=== PATIENT | male | born 1950 | race Caucasian/White ===

== ENCOUNTER 2019-10-13 12:13 | Inpatient (IN) | payer OTHER ==
[2019-10-13] MEDS ORDERED: LACTATED RINGERS SOLUTION 1000 ML INFUS.BAG IV ONE ×2 (13:35→16:45)
[2019-10-13] MEDS ORDERED: ACETAMINOPHEN 1000 MG/100 ML VIAL (NON FORMULARY) IVPB ONE (13:43)
[2019-10-13] MEDS ORDERED: ACETAMINOPHEN INJECTION 100 ML IVPB ONE (13:53)
--- NOTE | 2019-10-13 14:43 | PDOC ---
History of Present Illness - General Chief Complaint: Pain Stated Complaint: SENT BY PCP (AASHISH BULLARD) Time Seen by Provider: 10/13/19 12:41 - History of Present Illness Initial Comments: HPI Pt is a 68yo M with PMH HLD, NIDDM, colon CA s/p resection s/p ileostomy, who presents with 2 week history of worsening epigastric pain. Over the last two days, patient has had decreased PO intake and difficulty sleeping due to pain. Pain is described as epigastric radiating bilaterally to upper abdomen, constant, 11/10, worse when moving and laying on right side, described as squeezing. Was prescribed 21 tabs of oxycodone by Dr. Davis, and states that taking 1 pill at a time had no effect. States that he had pancreatitis in April when he was admitted here (bactrim induced pancreatitis), and states that current pain is significant worse. Reports significant weight loss prior to last admission, but denies recent further weight loss. Denies f/c, chest pain, SOB, n/v, no change in stool output in ileostomy bag, no dysuria. PCP: Susan PMH: see above PSH: see chart Meds: see chart Allergies: penicillin (anaphylaxis) Social: former smoker, denies ETOH (used to drink 6 pack/day, stopped in april; drank 6 packs/day for 2 weeks while on vacation in August) Review of Systems CONSTITUTIONAL:denies fever, chills, diaphoresis, generalized weakness, malaise, loss of appetite HEENT:denies rhinorrhea, nasal congestion, sore throat, ear pain, eye pain, visual changes CARDIOVASCULAR:denies chest pain, syncope, palpitations, irregular heart rate, lightheadedness, peripheral edema RESPIRATORY:denies cough, shortness of breath, wheezing GASTROINTESTINAL: reports abdominal pain, denies nausea, vomiting, blood in ileostomy output GENITOURINARY:denies dysuria, frequency, urgency, hesitancy, hematuria, flank pain MUSCULOSKELETAL:denies myalgia, arthralgia, neck pain, back pain HEMATOLOGIC/IMMUNOLOGIC:denies easy bleeding, easy bruising ENDOCRINE: reports previous unexplained weight loss NEUROLOGIC:denies headache, loss of consciousness, focal weakness or paresthesias, dizziness, mental status changes, bladder or bowel incontinence SKIN:denies rash, itching, pallor Physical Exam General: awake, alert, fully oriented, in no acute distress, well developed, well nourished Head: normocephalic, atraumatic Eyes: PERRL, EOMI, anicteric sclera, conjunctiva clear ENT: Auricles normal inspection, hearing grossly normal, oropharynx clear witho ut exudates, Moist mucous membranes Neck: supple, normal ROM Lung: equal breath sounds b/l, CTA b/l, no crackles, wheezes; no distress, speaks full sentences Heart: RRR, normal S1, S2, no murmurs appreciated Abdomen: soft, tender to palpitation in all quadrants, normoactive bowel sounds; voluntary guarding, no rebound, masses Extremities: no edema, no erythema or tenderness, DP/PT pulses 2+ and symmetric Neuro: CN2-12 grossly intact, moves all extremities, normal speech, sensation intact Skin: warm, dry, no rashes or lesions noted MDM Pt is a 68yo M with PMH HLD, NIDDM, colon CA s/p resection s/p ileostomy, who presents with 2 week history of worsening epigastric pain. DDx including but not limited to: pancreatitis, mesenteric ischemia, peptic ulcer, gastritis Workup: labs, CT a/p TX: pain control ED course Given Tylenol and 1L LR - no improvement in abdominal pain Labs: no leukocytosis, no anemia, elevated Cr (1.6), elevated lipase (2732), elevated lactic acid (2.2) Laboratory Tests 10/13/19 10/13/19 10/13/19 13:40 14:40 14:40 WBC 7.2 RBC 3.68 L Hgb 9.9 L Hct 30.8 L D MCV 83.7 MCH 26.8 MCHC 32.0 RDW 18.7 H Plt Count 238 D MPV 10.2 Absolute Neuts (auto) 5.3 Neutrophils % 73.7 D Lymphocytes % 7.3 L D Monocytes % 13.8 H Eosinophils % 4.5 Basophils % 0.7 Nucleated RBC % 0 PT with INR 15.60 H INR 1.32 H PTT (Actin FS) 27.6 Sodium Potassium Chloride Carbon Dioxide Anion Gap BUN Creatinine Est GFR (CKD-EPI)AfAm Est GFR (CKD-EPI)NonAf Random Glucose Lactic Acid Calcium Total Bilirubin AST ALT Alkaline Phosphatase Total Protein Albumin Lipase Blood Type O POSITIVE Antibody Screen Negative 10/13/19 10/13/19 14:40 14:40 WBC RBC Hgb Hct MCV MCH MCHC RDW Plt Count MPV Absolute Neuts (auto) Neutrophils % Lymphocytes % Monocytes % Eosinophils % Basophils % Nucleated RBC % PT with INR INR PTT (Actin FS) Sodium 135 L Potassium 4.9 Chloride 104 Carbon Dioxide 24 Anion Gap 6 L BUN 22.5 H Creatinine 1.6 H Est GFR (CKD-EPI)AfAm 50.20 Est GFR (CKD-EPI)NonAf 43.31 Random Glucose 128 H Lactic Acid 2.2 H* Calcium 9.2 Total Bilirubin 0.8 AST 57 H ALT 49 Alkaline Phosphatase 160 H Total Protein 7.9 Albumin 3.1 L Lipase 2732 H Blood Type Antibody Screen CT: multiple peripancreatic cysts consistent with pseudocysts, additional cysts anterior to transverse colon consistent with pseudocysts, thick walled urinary bladder Pt reports continued pain, will give fentanyl and additional 1L LR Admission discussed with patient who agrees with plan Will order EKG Disposition: Admit Past History - Medical History Allergies/Adverse Reactions: Allergies Allergy/AdvReac Type Severity Reaction Status Date / Time Penicillins Allergy Severe Difficulty Verified 04/27/19 18:52 Breathing adhesive tape AdvReac Rash Verified 04/26/19 05:53 Home Medications: Ambulatory Orders Gabapentin [Neurontin -] 300 mg PO TID 04/25/19 Pantoprazole Sodium [Protonix -] 40 mg PO DAILY 04/25/19 metFORMIN HCL [Metformin HCl ER] 750 mg PO DAILY 04/25/19 Aspirin [ASA -] 81 mg PO DAILY #30 tab.chew 05/02/19 Albuterol Sulfate [Proair Hfa] 2 puff IH BID PRN #1 inhaler 05/10/19 Metoprolol Tartrate [Lopressor -] 12.5 mg PO BID #60 tablet 05/10/19 Anemia: No Asthma: No Cancer: Yes (colo rectal 15 yrs ago 2001 s/p chemo and radiation) Cardiac Disorders: No CVA: No COPD: No CHF: No Dementia: No Diabetes: No GI Disorders: (ILEOSTOMY 2013 ; HERNIA REPAIR) Disorders: No HTN: No Hypercholesterolemia: Yes Liver Disease: No Seizures: No Thyroid Disease: No - Surgical History Abdominal Surgery: Yes (ileostomy 08/22/11; hernia repair 12/2012; I&D [id number]/6/13) Appendectomy: Yes Cardiac Surgery: No Cholecystectomy: No Lung Surgery: No Neurologic Surgery: No Orthopedic Surgery: No - Psycho-Social/Smoking History Smoking History: Former smoker Have you smoked in the past 12 months: No If you are a former smoker, when did you quit?: Over 30 years ago Information on smoking cessation initiated: No - Substance Abuse Hx (Audit-C & DAST Scrn) How often the patient has a drink containing alcohol: Never Score: In Men: 4 or > Positive; In Women: 3 or > Positive: 0 Screen Result (Pos requires Nsg. Audit-10AR): Negative In the last yr the pt used illegal drug/Rx for NonMed reason: No Score: Yes response is considered Positive: 0 Screen Result (Positive result requires Nsg. DAST-10): Negative *Physical Exam - Vital Signs Last Vital Signs Temp Pulse Resp BP Pulse Ox 98.4 F 133 H 21 H 115/74 98 10/13/19 12:15 10/13/19 12:15 10/13/19 12:15 10/13/19 12:15 10/13/19 12:15 ED Treatment Course - LABORATORY CBC & Chemistry Diagram: 10/14/19 09:05 10/14/19 09:05 - RADIOLOGY Radiology Studies Ordered: Category Date Time Status ABDOMEN & PELVIS CT WITH CONTR [CT] Stat CT Scan 10/13/19 13:35 Ordered Discharge - Discharge Information Problems reviewed: Yes Clinical Impression/Diagnosis: ARAVIND (acute kidney injury) Pancreatitis Qualifiers: Chronicity: chronic Pancreatitis type: unspecified pancreatitis type Qualified Code(s): K86.1 - Other chronic pancreatitis Condition: Stable - Admission Yes - Follow up/Referral - Patient Discharge Instructions - Post Discharge Activity
[2019-10-13 14:56] LABS: BASO % 0.7 % (0-2.0); EOS % 4.5 % (0-4.5); HEMATOCRIT 30.8 % (35.4-49); HEMOGLOBIN 9.9 GM/dL (11.7-16.9); LYMPH % 7.3 % (8-40); MCH 26.8 pg (25.7-33.7); MEAN CELL VOLUME 83.7 fl (80-96); MEAN PLT VOLUME 10.2 fl (7.5-11.1); MONO % 13.8 % (3.8-10.2); NEUT % 73.7 % (42.8-82.8); PLATELET COUNT 238 K/MM3 (134-434); RBC 3.68 M/mm3 (4.00-5.60); RDW 18.7 % (11.9-15.9); WHITE BLOOD COUNT 7.2 K/mm3 (4.0-10.0)
[2019-10-13 15:00] LABS: INR 1.32 (0.83-1.09); PROTHROMBIN TIME (PATIENT) 15.6 SEC (9.7-13.0)
[2019-10-13 15:03] LABS: ACTIVATED PTT 27.6 SECONDS (25.2-36.5)
[2019-10-13 15:22] LABS: ALBUMIN 3.1 g/dl (3.4-5.0); BILIRUBIN,TOTAL 0.8 mg/dL (0.2-1); BLOOD UREA NITROGEN 22.5 mg/dL (7-18); CALCIUM 9.2 mg/dL (8.5-10.1); CREATININE 1.6 mg/dL (0.55-1.3); POTASSIUM 4.9 mmol/L (3.5-5.1); TOT PROT 7.9 g/dl (6.4-8.2)
--- NOTE | 2019-10-13 15:56 | PDOC ---
Documentation entered by Ghazala Dunham SCRIBE, acting as scribe for Erick Garay MD. Erick Garay MD: This documentation has been prepared by the berry, Ghazala Dunham SCRIBE, under my direction and personally reviewed by me in its entirety. I confirm that the documentation accurately reflects all work, treatment, procedures, and medical decision making performed by me. Attending Attestation - Resident Resident Name: Lizeth Boyd - ED Attending Attestation I have performed the following: I have examined & evaluated the patient, The case was reviewed & discussed with the resident, I agree w/resident's findings & plan, Exceptions are as noted - HPI HPI: 10/13/19 15:10 The patient is a 68 year old male with past medical history significant for HLD, NIDDM and Colon CA s/p resection s/p ileostomy who presents to the emergency department with epigastric pain. The patient presents with 2 weeks of worsening epigastric pain radiating to the upper abdomen, associated with decreased PO intake. The patient reports he was prescribed Oxycodone for the pain, reports taking a dose, without pain relief. Denies fever, chills, cough, chest pain, shortness of breath, nausea, vomiting. Denies any changes in the stool. Denies any other complaint. Reports this feels like what he had in April. - Physicial Exam PE: 10/13/19 15:48 Agree with resident exam - Medical Decision Making 10/13/19 14:48 68yo M hx pancreatitis presents to the ED with epigastric pain and decreased PO. DEnies etoh use or new drugs DDx includes pancreatitis vs gastritis vs GERD vs enteritis Plan for labs, CTAP, IVF, pain control, reassess 10/13/19 15:54 Lipase in , consistent with pancreatitis CTAP pending Pain well controlled Discharge - Follow up/Referral Referrals: Neto Davis MD [Primary Care Provider] - - Patient Discharge Instructions - Post Discharge Activity
--- NOTE | 2019-10-13 19:46 | PN ---
Teaching Attending Note Name of Resident: Davon Mcallister ATTENDING PHYSICIAN STATEMENT I saw and evaluated the patient. I reviewed the resident's note and discussed the case with the resident. I agree with the resident's findings and plan as documented. SUBJECTIVE: Patient is a 68 year old man with a PMH of Penicillin/Hydromorphone allergy, HLD , NIDDM, ?Alcohol abuse, Colon cancer (s/p resection/ileostomy; chemotherapy/radiotherapy), Pancreatitis, ?CKD and ?COPD who presents with worsening epigastric pain for 2 weeks. Over the last two days, patient has had decreased PO intake and difficulty sleeping due to pain. Pain is described as epigastric, radiating bilaterally to upper abdomen, constant, 11/10, worse when moving and laying on right side and described as squeezing. Was prescribed 21 tabs of [address] Dr[address] Davis, and states that taking 1 pill at a time had no effect. States that he had Pancreatitis in April when he was admitted here (?Bactrim- induced pancreatitis), and states that current pain is much worse. Reports significant weight loss prior to last admission, but denies recent further weight loss. No change in stool output in ileostomy bag. Patient denies chest pain, shortness of breath, headache, palpitations, dizziness, fever, chills, nausea, vomiting, diarrhea, constipation, dysuria, frequency, urgency, melena, hematochezia or hematuria. Former smoker. Denies alcohol, tobacco or illicit drug use. No sick contacts or recent travels. Family history - father of ND and mother of unspecified cancer. OBJECTIVE: Alert Vital Signs Period Temp Pulse Resp BP Sys/[place] Pulse Ox Last 24 Hr 98.4 F 98-133 16-21 115-135/71-82 98-99 HEENT: No Jaundice, eye redness or discharge, PERRLA, EOMI. Normocephalic, atraumatic. External ears are normal and hearing is grossly intact. No nasal discharge. Neck: Supple, nontender. No palpable adenopathy or thyromegaly. No JVD Chest: Good effort. Clear to auscultation and percussion. Heart: Regular. No S3, rub or murmur Abdomen: Not distended, soft, diffuse tenderness; ileostomy bag in place; and no HSM. No rebound or guarding. Normal bowel sounds. Ext: Peripheral pulses intact. No leg edema. Skin: Warm and dry. No petechiae, rash or ecchymosis. Neuro: Alert. Oriented x3. CN 2-12 grossly intact. Sensation grossly intact in all four extremities and DTR are symmetric. Psych: Appropriate mood and affect. Good insight. Home Medications Medication Instructions Recorded Gabapentin [Neurontin -] 300 mg PO TID 04/25/19 Pantoprazole Sodium [Protonix -] 40 mg PO DAILY 04/25/19 metFORMIN HCL [Metformin HCl ER] 750 mg PO DAILY 04/25/19 Aspirin [ASA -] 81 mg PO DAILY #30 tab.chew 05/02/19 Albuterol Sulfate [Proair Hfa] 2 puff IH BID PRN #1 inhaler 05/10/19 Metoprolol Tartrate [Lopressor -] 12.5 mg PO BID #60 tablet 05/10/19 Abnormal Lab Results 10/13/19 10/13/19 10/13/19 14:40 14:40 14:40 RBC 3.68 L Hgb 9.9 L Hct 30.8 L D RDW 18.7 H Lymphocytes % 7.3 L D Monocytes % 13.8 H PT with INR 15.60 H INR 1.32 H Sodium 135 L Anion Gap 6 L BUN 22.5 H Creatinine 1.6 H Random Glucose 128 H Lactic Acid AST 57 H Alkaline Phosphatase 160 H Albumin 3.1 L Lipase 2732 H 10/13/19 14:40 RBC Hgb Hct RDW Lymphocytes % Monocytes % PT with INR INR Sodium Anion Gap BUN Creatinine Random Glucose Lactic Acid 2.2 H* AST Alkaline Phosphatase Albumin Lipase Current Medications Generic Name Dose Route Start Last Admin Trade Name Freq PRN Reason Stop Dose Admin Enoxaparin Sodium 40 mg 10/14/19 10:00 Lovenox - SQ DAILY SYLVESTER Fentanyl 25 mcg 10/13/19 21:18 Sublimaze Injection - IVPUSH 10/14/19 21:29 Q6H PRN PAIN LEVEL 7 - 10 Lactated Ringer's 1,000 ml in 1,000 mls @ 200 mls/hr 10/13/19 21:15 10/13/19 21:23 Lactated Ringers Solution IV 200 mls/hr ASDIR SYLVESTER Administration Insulin Aspart 1 vial 10/13/19 22:00 08/27/20 21:39 Novolog Vial Sliding Scale - SQ Not Given ACHS [facility] Protocol Oxycodone HCl 5 mg 10/13/19 22:00 Roxicodone - PO TID [facility] ASSESSMENT AND PLAN: 1. Pancreatitis - CT scan of abdomen/pelvis with IV contrast shows "multiple peripancreatic cysts consistent with pseudocysts, additional cysts anterior to transverse colon consistent with pseudocysts, thick walled urinary bladder." ER staff prescribed Tylenol, Fentanyl and IV LR for the patient. Will give Oxycodone q 6 hours and use Fentanyl for breakthrough pain. Give LR at 200/minute. Get urinalysis stat. EKG shows NSR at 88/minute and QTc 454, 1o AV block with no ischemic ST-T wave changes. Initial troponin is negative. Will avoid drugs that may prolong QTc. Will monitor LFTs, avoid hepatotoxic drugs, trend lactic acid and consult GI. Viral testing for COVID-19 ordered and patient placed on airborne, droplet and contact isolation. Started on supplemental oxygen via nasal cannula/non- rebreather mask. Hyponatremia likely partly due to hyperglycemia. Will limit free water intake and correct hyperglycemia. Will continue comprehensive care for all of patients comorbid conditions. 2. DM For now, we will hold the home diabetes drugs and implement sliding scale insulin regimen. Provide comprehensive diabetes care with patient teaching and counseling about the importance of adherence to prescribed diabetes regimen, euglycemia, eye care and foot care. Start on ACEI before discharge after ?ARAVIND is addressed. 3. Hypoalbuminemia - Possibly due to combined effects of malnutrition and inflammation associated with comorbid conditions. Will ensure adequate dietary protein intake and also consult ehs teacher. Urinalysis pending. 4. ARAVIND on ?CKD - Cause unclear. Will get kidney sonogram, hydrate gently, monitor urine output and consult Nephrology. Avoid nephrotoxic agents such as NSAIDS, aminoglycosides, contrast dyes and certain Alternative medicine products. 5. Anemia Cause unclaer, but has had basic anemia work up. "Uncorrected" reticulocyte count was 1.45; iron saturation 12%, normal B12/folate levels with Hematocrit of 26.2% on 05/17/2019. She was also noted to have elevated [place] and Lambda light chains and normal tumor makers (CEA, AFP, CA19-9). Will do serial stool guaiacs, treat with Venofer 500 mg x 2 doses and consult Hematology. 6. DVT prophylaxis - Lovenox 40 mg SQ q 24 hours. 7. Advance directives - Full code
[2019-10-13] MEDS: LACTATED RINGERS SOLUTION 1,000 ML/1,000 ML INFUS.BAG IV SCH (21:23)
[2019-10-13] MEDS: INSULIN SLIDING SCALE (NOVOLOG) 1 VIAL SQ SCH (21:39)
--- NOTE | 2019-10-13 22:05 | HP ---
CHIEF COMPLAINT: 2 weeks worsening epigastric pain PCP: Dr. Davis (patient reports last visit maybe 5 years ago; does not see doctor unless sick due to financial constraints) HISTORY OF PRESENT ILLNESS: 68 year old male patient with past medical history that includes HLD, NIDDM, colo-rectal cancer resection with ileostomy and chemo and radiation, cholecystectomy, and hiatial hernia, who presented to the emergency room with 2 weeks of worsening epigastric pain. The patient's pain began at around a 4/10 and then gradually increased daily until it was a 10/10 for the past 2 days and the patient was unable to sleep. The pain radiates to the right and left upper quadrants of his abdomen. The patient reports feeling very hungry and with an appetite, but he has not been eating as he feels that it might make the pain worse. He has been drinking several quarts of fluids daily. The patient denies any nausea/vomiting. He reports that his stool in his ileostomy bag hasn't changed in any way. He changes his ileostomy bag 6 times a day. The patient denies drinking any alcohol in the past month. He stopped drinking in April of this year and only drinks about one 6 pack of alcohol monthly, with his last drink 1 month ago. The patient denies any recent illness. The patient reports that his pain is down from a 10/10 to a 4/10 with the pain medication he was given in the emergency room. ER course was notable for: (1) 2 liters Lactated Ringers (2) 60mg Fentanyl and 1,000mg IV Tylenol (3) CT A/P Recent Travel: denies PAST MEDICAL HISTORY: HLD, NIDDM, colo-rectal cancer resection with ileostomy and chemo and radiation, hiatial hernia PAST SURGICAL HISTORY: parastomal hernia repair 12/2012, I&D parastomal abscess 01/21/2013, [employer] laser prostatectomy 06/20/2015, right lower quadrant ileostomy 08/22/2011, colo- rectal cancer resection 2001, cholecystectomy around 1997 Social History: Smoking: Denies Alcohol: Denies. Drinks one 6-pack of beer monthly. Last drink 1 month ago. Drugs: Denies Allergies Penicillins Allergy (Severe, Verified 04/27/19 18:52) Difficulty Breathing anaphylaxis adhesive tape Adverse Reaction (Verified 04/26/19 05:53) Rash hydromorphone HCl [From Dilaudid] Adverse Reaction (Verified 04/26/19 05:53) halucinations pt halucinates with IV dilaudid only. pt takes po dilaudid daily without any reaction HOME MEDICATIONS: Home Medications Medication Instructions Recorded Gabapentin [Neurontin -] 300 mg PO TID 04/25/19 Pantoprazole Sodium [Protonix -] 40 mg PO DAILY 04/25/19 metFORMIN HCL [Metformin HCl ER] 750 mg PO DAILY 04/25/19 Aspirin [ASA -] 81 mg PO DAILY #30 tab.chew 05/02/19 Albuterol Sulfate [Proair Hfa] 2 puff IH BID PRN #1 inhaler 05/10/19 Metoprolol Tartrate [Lopressor -] 12.5 mg PO BID #60 tablet 05/10/19 REVIEW OF SYSTEMS CONSTITUTIONAL: Absent: no loss of appetite CARDIOVASCULAR: Absent: no chest pain RESPIRATORY: Absent: no shortness of breath GASTROINTESTINAL: abdominal payne Absent: no nausea, no vomiting, no change in his ileostomy output GENITOURINARY: Absent: no dysuria MUSCULOSKELETAL: Absent: no leg swelling PHYSICAL EXAMINATION Vital Signs - 24 hr 10/13/19 10/13/19 10/13/19 12:15 14:53 17:52 Temperature 98.4 F Pulse Rate 133 H Pulse Rate [ 98 H 98 H Left] Respiratory 21 H 16 16 Rate Blood Pressure 115/74 Blood Pressure 135/82 130/71 [Arm] O2 Sat by Pulse 98 99 99 Oximetry (%) 10/13/19 18:17 Temperature Pulse Rate Pulse Rate [ Left] Respiratory Rate Blood Pressure Blood Pressure [Arm] O2 Sat by Pulse 99 Oximetry (%) GENERAL: Awake, alert, and fully oriented, in no acute distress. HEAD: Normal with no signs of trauma. EYES: Pupils equal, round and reactive to light, extraocular movements intact. No lid lag. EARS, NOSE, THROAT: Ears normal, nares patent, oropharynx clear without exudates. Moist mucous membranes. NECK: Normal range of motion, supple without lymphadenopathy, JVD, or masses. LUNGS: Breath sounds equal, clear to auscultation bilaterally. No wheezes, and no crackles. No accessory muscle use. HEART: Regular rate and rhythm, normal S1 and S2 without murmur, rub or gallop. ABDOMEN: Soft, tender to epigastric region and tender to RUQ and LUQ of abdomen, not distended, normoactive bowel sounds, no guarding, no rebound, no masses. Umbilicus dark blue-guido, but patient reports that this is it's normal appearance. No erythema around ileostomy bag. MUSCULOSKELETAL: Normal range of motion at all joints. No bony deformities or tenderness. UPPER EXTREMITIES: 2+ pulses, warm, well-perfused. No cyanosis. No clubbing. No peripheral edema. LOWER EXTREMITIES: 2+ pulses, warm, well-perfused. No calf tenderness. No peripheral edema. NEUROLOGICAL: Normal speech. Unable to see laterally to the left and inferiorly on visual field testing. PSYCHIATRIC: Cooperative. Good eye contact. Appropriate mood and affect. SKIN: Warm, dry, normal turgor, no rashes or lesions noted, normal capillary refill. Laboratory Results - last 24 hr 10/13/19 10/13/19 10/13/19 13:40 14:40 14:40 WBC 7.2 RBC 3.68 L Hgb 9.9 L Hct 30.8 L D MCV 83.7 MCH 26.8 MCHC 32.0 RDW 18.7 H Plt Count 238 D MPV 10.2 Absolute Neuts (auto) 5.3 Neutrophils % 73.7 D Lymphocytes % 7.3 L D Monocytes % 13.8 H Eosinophils % 4.5 Basophils % 0.7 Nucleated RBC % 0 PT with INR 15.60 H INR 1.32 H PTT (Actin FS) 27.6 Sodium Potassium Chloride Carbon Dioxide Anion Gap BUN Creatinine Est GFR (CKD-EPI)AfAm Est GFR (CKD-EPI)NonAf Random Glucose Lactic Acid Calcium Total Bilirubin AST ALT Alkaline Phosphatase Total Protein Albumin Triglycerides Lipase Blood Type O POSITIVE Antibody Screen Negative 10/13/19 10/13/19 10/13/19 14:40 14:40 18:00 WBC RBC Hgb Hct MCV MCH MCHC RDW Plt Count MPV Absolute Neuts (auto) Neutrophils % Lymphocytes % Monocytes % Eosinophils % Basophils % Nucleated RBC % PT with INR INR PTT (Actin FS) Sodium 135 L Potassium 4.9 Chloride 104 Carbon Dioxide 24 Anion Gap 6 L BUN 22.5 H Creatinine 1.6 H Est GFR (CKD-EPI)AfAm 50.20 Est GFR (CKD-EPI)NonAf 43.31 Random Glucose 128 H Lactic Acid 2.2 H* 2.0 Calcium 9.2 Total Bilirubin 0.8 AST 57 H ALT 49 Alkaline Phosphatase 160 H Total Protein 7.9 Albumin 3.1 L Triglycerides 115 Lipase 2732 H Blood Type Antibody Screen ASSESSMENT/PLAN: 68 year old male patient with past medical history that includes HLD, NIDDM, colo-rectal cancer resection with ileostomy and chemo and radiation, cholecystectomy, and hiatial hernia, who presented to the emergency room with 2 weeks of worsening epigastric pain. 1. Pancreatitis of idiopathic etiology - CT A/P showed pseudocysts - Lipase 2,732 - Patient denies recent alcohol use - Past medical history of cholecystectomy - LR at 200 - Oxycodone SYLVESTER and Fentanyl PRN for pain - NPO with plan to advance diet likely tomorrow morning 2. Possible ARAVIND - Nephro consulted - Renal U/S - IV Fluids 3. NIDDM - Novolog Sliding Scale - Blood Glucose Monitoring - Consider starting on ACEI before discharge after possible ARAVIND is addressed. 4. Anemia - Hem Consulted - Iron study done on 05/17/2019 - FOBT (patient's rectum sewn shut and instead uses ileostomy bag) - Venofer for the morning 5. Hypoalbuminemia - Events Traffic Controller consulted # FEN - LR at 200, Monitoring Electrolytes, NPO DVT PPx - Lovenox SQ Family Medical History Family History: As Documented Family Hx Cancer: Mother Family Hx Coronary Artery Disease: Father Visit type - Medication Review Med list reviewed for High Risk Meds patients 65 and older: Yes - Emergency Visit Emergency Visit: Yes ED Registration Date: 10/13/19 Care time: The patient presented to the Emergency Department on the above date and was hospitalized for further evaluation of their emergent condition. - New Patient This patient is new to me today: Yes Date on this admission: 10/14/19 - Critical Care Critical Care patient: No ATTENDING PHYSICIAN STATEMENT I saw and evaluated the patient. I reviewed the resident's note and discussed the case with the resident. I agree with the resident's findings and plan as documented. SUBJECTIVE: OBJECTIVE: ASSESSMENT AND PLAN:
[2019-10-13] MEDS: oxyCODONE HCL 5 MG TABLET PO SCH (23:00)
[2019-10-14 00:36] VITALS: BMI 25.2
[2019-10-14 00:46] LABS: URINE APPEARANCE CLEAR; URINE BILIRUBIN NEGATIVE (NEGATIVE); URINE COLOR YELLOW; URINE GLUCOSE (UA) NEGATIVE (NEGATIVE); URINE KETONE NEGATIVE (NEGATIVE)
[2019-10-14 00:47] LABS: EPI CELLS 8 /uL (0-25.1); HYALINE CASTS 1 /uL (0-3.1); URINE BACTERIA 7 /uL (0-1359); URINE LEUK ESTERASE NEGATIVE (NEGATIVE); URINE NITRITE NEGATIVE (NEGATIVE); URINE PROTEIN NEGATIVE (NEGATIVE); URINE RBC 13 /uL (0-23.9); URINE UROBILINOGEN 0.2 mg/dL (0.2-1.0); URINE WBC 14 /uL (0-25.8)
[2019-10-14] MEDS: LACTATED RINGERS SOLUTION 1,000 ML/1,000 ML INFUS.BAG IV SCH ×2 (05:25→12:47)
[2019-10-14] MEDS ORDERED: IRON SUCROSE INJECTION 500 MG in SODIUM CHLORIDE 225 ML IVPB ONE (06:00)
[2019-10-14] MEDS: oxyCODONE HCL 5 MG TABLET PO SCH ×2 (06:38→14:46)
[2019-10-14] MEDS: INSULIN SLIDING SCALE (NOVOLOG) 1 VIAL SQ SCH ×3 (06:40→16:42)
[2019-10-14 09:30] LABS: BASO % 0.7 % (0-2.0); EOS % 14.5 % (0-4.5); HEMATOCRIT 24.8 % (35.4-49); HEMOGLOBIN 7.8 GM/dL (11.7-16.9); LYMPH % 19.2 % (8-40); MCH 26.2 pg (25.7-33.7); MCHC 31.3 g/dl (32.0-35.9); MEAN CELL VOLUME 83.8 fl (80-96); MEAN PLT VOLUME 9.8 fl (7.5-11.1); MONO % 16.8 % (3.8-10.2); NEUT % 48.8 % (42.8-82.8); PLATELET COUNT 159 K/MM3 (134-434); RBC 2.96 M/mm3 (4.00-5.60); RDW 18.7 % (11.9-15.9); WHITE BLOOD COUNT 4.6 K/mm3 (4.0-10.0)
[2019-10-14] MEDS ORDERED: PANTOPRAZOLE SODIUM 40 MG VIAL IVPUSH SCH (10:00)
[2019-10-14] MEDS ORDERED: ENOXAPARIN NA (PORCINE) 40 MG/0.4 ML DISP.SYRIN SQ SCH (10:00)
[2019-10-14 10:05] LABS: ALBUMIN 2.4 g/dl (3.4-5.0); BILIRUBIN,TOTAL 1.2 mg/dL (0.2-1); BLOOD UREA NITROGEN 15.5 mg/dL (7-18); CALCIUM 8.3 mg/dL (8.5-10.1); CREATININE 1.3 mg/dL (0.55-1.3); MAGNESIUM 1.7 mg/dL (1.8-2.4); PHOSPHOROUS 2.8 mg/dL (2.5-4.9); POTASSIUM 4.1 mmol/L (3.5-5.1); TOT PROT 6.4 g/dl (6.4-8.2)
--- NOTE | 2019-10-14 11:03 | EKG ---
Test Reason : Blood Pressure : / mmHG Vent. Rate : 088 BPM Atrial Rate : 088 BPM P-R Int : 216 ms QRS Dur : 078 ms QT Int : 376 ms P-R-T Axes : 040 008 044 degrees QTc Int : 454 ms SINUS RHYTHM WITH 1ST DEGREE A-V BLOCK OTHERWISE NORMAL ECG WHEN COMPARED WITH ECG OF 25-APR-2019 15:08, NO SIGNIFICANT CHANGE WAS FOUND Confirmed by JESUS RICKS MD ([id number]) on 10/14/2019 11:02:56 AM Referred By: Confirmed By:JESUS RICKS MD
--- NOTE | 2019-10-14 11:06 | CONSULT ---
- Consultation REQUESTING PROVIDER: Sena JONES CONSULT REQUEST: We have been asked to surgically evaluate this patient for abdominal pain. PCP:Bruno Shetty MD HISTORY OF PRESENT ILLNESS: CTSP who is a 68 y/o male who presneted w/intractable abdominal pain not relieved by oral narcotics; he has a h/o most likely EtOH induced pancreatitis. PMHx: NIDDM/HTN/COPD/pancreatitis 04/2019 PSHx: LAR and then ileostomy for recurrent anastomotic leak/ulcer/incontinence ?; open cholecystectomy; parastomal hernia repair Home Medications Medication Instructions Recorded Gabapentin [Neurontin -] 300 mg PO TID 04/25/19 Pantoprazole Sodium [Protonix -] 40 mg PO DAILY 04/25/19 metFORMIN HCL [Metformin HCl ER] 750 mg PO DAILY 04/25/19 Aspirin [ASA -] 81 mg PO DAILY #30 tab.chew 05/02/19 Albuterol Sulfate [Proair Hfa] 2 puff IH BID PRN #1 inhaler 05/10/19 Metoprolol Tartrate [Lopressor -] 12.5 mg PO BID #60 tablet 05/10/19 Allergies Allergy/AdvReac Type Severity Reaction Status Date / Time Penicillins Allergy Severe Difficulty Verified 04/27/19 18:52 Breathing adhesive tape AdvReac Rash Verified 04/26/19 05:53 hydromorphone HCl AdvReac halucinatio Verified 04/26/19 05:53 [From Dilaudid] ns REVIEW OF SYSTEMS: CONSTITUTIONAL: Absent: fever, chills, diaphoresis, generalized weakness, malaise, loss of appetite, weight change CARDIOVASCULAR: Absent: chest pain, syncope, palpitations, irregular heart rate, lightheadedness, peripheral edema RESPIRATORY: Absent: cough, shortness of breath, dyspnea with exertion, wheezing, stridor, hemoptysis GASTROINTESTINAL: Present: abdominal pain, Absent: abdominal distension, nausea, vomiting, diarrhea, constipation, melena, hematochezia GENITOURINARY: Absent: dysuria, frequency, urgency, hesitancy, hematuria, flank pain, genital pain MUSCULOSKELETAL: Absent: myalgia, arthralgia, joint swelling, back pain, neck pain SKIN: Absent: rash, itching, pallor HEMATOLOGIC/IMMUNOLOGIC: Absent: easy bleeding, easy bruising, lymphadenopathy NEUROLOGIC: Absent: headache, focal weakness, paresthesias, dizziness, unsteady gait, seizure, mental status changes, bladder or bowel incontinence PSYCHIATRIC: Absent: anxiety, depression, suicidal or homicidal ideation, hallucinations. PHYSICAL EXAM: GENERAL: Awake, alert, and fully oriented, in no acute distress. HEAD: Normal with no signs of trauma. EYES: PERRL, sclera anicteric, conjunctiva clear. HEART: Regular rate and rhythm. No murmurs ABDOMEN: Soft, nontender, not distended, normoactive bowel sounds, no guarding, no rebound, no masses. No organomegaly. MUSCULOSKELETAL: Normal ROM at all joints. No bony deformities or tenderness. No CVA tenderness. UPPER EXTREMITIES: 2+ pulses, warm, well-perfused. No cyanosis. Cap refill <2 seconds. No peripheral edema. LOWER EXTREMITIES: 2+ pulses, warm, well-perfused. No calf tenderness. No peripheral edema. NEUROLOGICAL: Normal speech, gait not observed. PSYCH: Cooperative. Good eye contact. Appropriate mood and affect. SKIN: Warm, dry, normal turgor, no rashes or lesions noted. Vital Signs Temperature 97.5 F L 10/14/19 07:21 Pulse Rate 60 10/14/19 07:21 Respiratory Rate 20 10/14/19 07:21 Blood Pressure 90/61 10/14/19 07:21 O2 Sat by Pulse Oximetry (%) 95 10/14/19 07:21 Lab Results WBC 4.6 K/mm3 (4.0-10.0) 10/14/19 09:05 RBC 2.96 M/mm3 (4.00-5.60) L 10/14/19 09:05 Hgb 7.8 GM/dL (11.7-16.9) L 10/14/19 09:05 Hct 24.8 % (35.4-49) L D 10/14/19 09:05 MCV 83.8 fl (80-96) 10/14/19 09:05 MCHC 31.3 g/dl (32.0-35.9) L 10/14/19 09:05 RDW 18.7 % (11.9-15.9) H 10/14/19 09:05 Plt Count 159 K/MM3 (134-434) D 10/14/19 09:05 INR 1.32 (0.83-1.09) H 10/13/19 14:40 Sodium 138 mmol/L (136-145) 10/14/19 09:05 Potassium 4.1 mmol/L (3.5-5.1) 10/14/19 09:05 Chloride 107 mmol/L (98-107) 10/14/19 09:05 Carbon Dioxide 24 mmol/L (21-32) 10/14/19 09:05 Anion Gap 8 MMOL/L (8-16) 10/14/19 09:05 BUN 15.5 mg/dL (7-18) 10/14/19 09:05 Creatinine 1.3 mg/dL (0.55-1.3) 10/14/19 09:05 Random Glucose 84 mg/dL (74-106) 10/14/19 09:05 Calcium 8.3 mg/dL (8.5-10.1) L 10/14/19 09:05 Blood Type O POSITIVE 10/13/19 13:40 Antibody Screen Negative 10/13/19 13:40 CT scan a/p reviewed and c/w pancreatic pseudocysts IMP: pancreatic pseudocysts PLAN: Suggest evaluation by Dr. Dl Laureano at [facility]; in the interim suggest NPO/IVF/IV analgesics. Jace Valdez MD FACS
--- NOTE | 2019-10-14 11:10 | CON.GI ---
Consult Consult Specialty:: GI Referred by:: Hospitalist Service Reason for Consultation:: Pancreatitis - History of Present Illness Chief Complaint: Abdominal pain History of Present Illness: 68M admitted 04/24 for evaluation of abdominal pain. GI consulted to evaluate for pancreatitis. Had CT scan revealing multiple peripancreatic fluid collections, some of which are thick walled and large (>11cm). No vomiting. No melena or bl ood from ileostomy. Has history of rectal cancer, s/p chemo/RT and LAR in 2001, s/p Ileostomy in 2011 due to persistent anastamotic ulcer and fecal incontinence. Episode of pancreatitis 05/05. Liver chemistries have been normal. Was drinking upwards of 20 beers per day. He says that he hasn't had a drink since april. When asked about the history obtained regarding having last drank a month ago he said "he doesn't remember." - History Source History Provided By: Patient, Medical Record - Past Medical History Cardio/Vascular: Yes: Hyperlipdemia Pulmonary: Yes: Bronchitis. No: Asthma, Cancer, COPD, O2 Dependent, Pneumonia, Previously Intubated, Pulmonary Embolus, Pulmonary Fibrosis, Sleep Apnea Gastrointestinal: Yes: Cancer, Other (colo-rectal ca treated with RT and chemotherapy in 2001; radiation proctitis in 2011 treated with ileostomy) Renal/: Yes: BPH Infectious Disease: Yes: Other (pelvic abscess) - Past Surgical History Past Surgical History: Yes: Colectomy (LAR for history of anastamotic ulcer / fecal incontinence), Hernia Repair, Ileosotomy - Alcohol/Substance Use Hx Alcohol Use: Yes - Smoking History Smoking history: Former smoker Have you smoked in the past 12 months: No If you are a former smoker, when did you quit?: Over 30 years ago - Social History Usual Living Arrangement: With Spouse Place of : [facility] History of Recent Travel: No Home Medications - Allergies Allergies/Adverse Reactions: Allergies Allergy/AdvReac Type Severity Reaction Status Date / Time Penicillins Allergy Severe Difficulty Verified 04/27/19 18:52 Breathing adhesive tape AdvReac Rash Verified 04/26/19 05:53 hydromorphone HCl AdvReac halucinatio Verified 04/26/19 05:53 [From Dilaudid] ns - Home Medications Home Medications: Ambulatory Orders Gabapentin [Neurontin -] 300 mg PO TID 04/25/19 Pantoprazole Sodium [Protonix -] 40 mg PO DAILY 04/25/19 metFORMIN HCL [Metformin HCl ER] 750 mg PO DAILY 04/25/19 Aspirin [ASA -] 81 mg PO DAILY #30 tab.chew 05/02/19 Albuterol Sulfate [Proair Hfa] 2 puff IH BID PRN #1 inhaler 05/10/19 Metoprolol Tartrate [Lopressor -] 12.5 mg PO BID #60 tablet 05/10/19 Family Medical History Family Hx Cancer: Mother Family Hx Coronary Artery Disease: Father Review of Systems - Review of Systems Constitutional: denies: Chills Cardiovascular: denies: Chest Pain Respiratory: denies: Cough Gastrointestinal: reports: Abdominal Pain, Diarrhea (Chronic loose bowel movements though ileostomy). denies: Constipation Physical Exam-GI Vital Signs: Vital Signs Temperature 97.5 F L 10/14/19 07:21 Pulse Rate 60 10/14/19 07:21 Respiratory Rate 20 10/14/19 07:21 Blood Pressure 90/61 10/14/19 07:21 O2 Sat by Pulse Oximetry (%) 95 10/14/19 07:21 Constitutional: Yes: Calm Eyes: No: Sclera Icterus Cardiovascular: Yes: Regular Rate and Rhythm. No: Murmur Respiratory: Yes: CTA Bilaterally Gastrointestinal Inspection: Yes: Scars ...Auscultate: Yes: Normoactive Bowel Sounds ...Palpate: Yes: Tenderness (Marked TTP mid abdomen, left upper abdomen) ...Percussion: No: Tympanitic Edema: No (No LE edema) Neurological: Yes: Alert Labs: CBC, BMP 10/14/19 09:05 10/14/19 09:05 INR, PTT INR 1.32 (0.83-1.09) H 10/13/19 14:40 Imaging - Results Cat Scan: Report Reviewed, Image Reviewed Assessment/Plan Pancreatitis: Likey acute pancreatitis with what appears to be chronic sequelae of pseudocyst formation. Mr. Henderson is somewhat unclear regarding his drinking history, so alcohol induced pancreatitis would need to remain in the differential diagnosis. Advise: NPO IV hydration Monitor H/H Surgical evaluation. Seen by Dr. Valdez Prior to evaluation, it was arranged for patient to be transferred to [facility] for further management Advised need for complete alcohol cessation
--- NOTE | 2019-10-14 11:36 | CONSULT ---
Consultation: Heme-Onc Resident note REQUESTING PROVIDER: Dr. Shetty CONSULT REQUEST: We have been asked to medically evaluate this patient for anemia. HISTORY OF PRESENT ILLNESS: Patient is a 68 year old male with past medical history of HLD, NIDDM, St III colorectal cancer s/p ileostomy, presented to the hospital because of persistent epigastric pain for [address] A/P revealed multiple pancreatic cysts consistent with pseudocyts. Of note, patient was admitted back in April for COPD and CAD, and then developed pancreatitis. MRCP at that time was negative for any pancreatic mass, bactrim-induced vs alcohol was suspected. Patient reports weight loss and decreased PO intake for the past year. He reports epigastric pain, but denies any fevers, chills, night sweats, nausea, vomiting, chest pain, SOB. Denies bloody stools. We have been consulted for further evaluation of a nemia. Pt was diagnosed in 2001 with colorectal cancer, with 1 positive node. He was found to have stage 3 disease, and underwent RT and chemo. In 2011, he was found to have radiation proctitis, and required ileostomy. He was following previously with oncologist, Dr. Brewer. PMHx: HLD, NIDDM, colon cancer s/p ileostomy PSHx: parastomal hernia repair (2012), laser prostatectomy (2015), hemicolectomy resection (2001), ileostomy (2011), cholecystectomy Allergies: PCN, hydromorphone FHx: mother - colon CA, at age 28. SHx: former smoker, quit 1989, 1 ppd for many yrs, previous alcohol use, denies illicit drug use REVIEW OF SYSTEMS: CONSTITUTIONAL: Absent: fever, chills, diaphoresis, generalized weakness, malaise, loss of appetite, weight change HEENT: Absent: rhinorrhea, nasal congestion, throat pain, throat swelling, difficulty swallowing, mouth swelling, ear pain, eye pain, visual changes CARDIOVASCULAR: Absent: chest pain, syncope, palpitations, irregular heart rate, lightheadedness, peripheral edema RESPIRATORY: Absent: cough, shortness of breath, dyspnea with exertion, orthopnea, wheezing, stridor, hemoptysis GASTROINTESTINAL:abdominal pain Absent: abdominal distension, nausea, vomiting, diarrhea, constipation, melena, hematochezia GENITOURINARY: Absent: dysuria, frequency, urgency, hesitancy, hematuria, flank pain, genital pain MUSCULOSKELETAL: Absent: myalgia, arthralgia, joint swelling, back pain, neck pain SKIN: Absent: rash, itching, pallor HEMATOLOGIC/IMMUNOLOGIC: Absent: easy bleeding, easy bruising, lymphadenopathy, frequent infections ENDOCRINE: Absent: unexplained weight gain, unexplained weight loss, heat intolerance, cold intolerance NEUROLOGIC: Absent: headache, focal weakness or paresthesias, dizziness, unsteady gait, seizure, mental status changes, bladder or bowel incontinence PSYCHIATRIC: Absent: anxiety, depression, suicidal or homicidal ideation, hallucinations. PHYSICAL EXAMINATION Vital Signs - 24 hr 10/13/19 10/13/19 10/13/19 12:15 14:53 17:52 Temperature 98.4 F Pulse Rate 133 H Pulse Rate [ 98 H 98 H Left] Respiratory 21 H 16 16 Rate Blood Pressure 115/74 Blood Pressure 135/82 130/71 [Arm] O2 Sat by Pulse 98 99 99 Oximetry (%) 10/13/19 10/13/19 10/13/19 18:17 19:21 21:00 Temperature 98.8 F Pulse Rate 85 Pulse Rate [ Left] Respiratory 20 20 Rate Blood Pressure 113/62 Blood Pressure [Arm] O2 Sat by Pulse 99 95 95 Oximetry (%) 10/14/19 10/14/19 02:00 07:21 Temperature 97.7 F 97.5 F L Pulse Rate 85 60 Pulse Rate [ Left] Respiratory 20 20 Rate Blood Pressure 105/66 90/61 Blood Pressure [Arm] O2 Sat by Pulse 96 95 Oximetry (%) GENERAL: Awake, alert, and fully oriented, in no acute distress. HEAD: Normal with no signs of trauma. EYES: PERRLA, EOMI, sclera anicteric, conjunctiva clear. EARS, NOSE, THROAT: Dry mucous membranes. NECK: Normal range of motion, supple LUNGS: Decreased breath sounds on bilateral bases HEART: Regular rate and rhythm, normal S1 and S2 ABDOMEN: Soft, +LUQ/epigastric tenderness, not distended, NABS, +ileostomy LOWER EXTREMITIES: 2+ pulses, warm, well-perfused. NEUROLOGICAL: Cranial nerves II-XII intact. Normal speech. PSYCHIATRIC: Cooperative. Good eye contact. SKIN: Warm, dry, normal turgor Laboratory Results - last 24 hr 08/27/20 08/27/20 08/27/20 13:40 14:40 14:40 WBC 7.2 RBC 3.68 L Hgb 9.9 L Hct 30.8 L D MCV 83.7 MCH 26.8 MCHC 32.0 RDW 18.7 H Plt Count 238 D MPV 10.2 Absolute Neuts (auto) 5.3 Neutrophils % 73.7 D Lymphocytes % 7.3 L D Monocytes % 13.8 H Eosinophils % 4.5 Basophils % 0.7 Nucleated RBC % 0 PT with INR 15.60 H INR 1.32 H PTT (Actin FS) 27.6 Sodium Potassium Chloride Carbon Dioxide Anion Gap BUN Creatinine Est GFR (CKD-EPI)AfAm Est GFR (CKD-EPI)NonAf POC Glucometer Random Glucose Lactic Acid Calcium Phosphorus Magnesium Total Bilirubin AST ALT Alkaline Phosphatase Total Protein Albumin Triglycerides Lipase Urine Color Urine Appearance Urine pH Ur Specific Riley Urine Protein Urine Glucose (UA) Urine Ketones Urine Blood Urine Nitrite Urine Bilirubin Urine Urobilinogen Ur Leukocyte Esterase Urine WBC (Auto) Urine RBC (Auto) Urine Casts (Auto) U Epithel Cells (Auto) Urine Bacteria (Auto) Stool Occult Blood Blood Type O POSITIVE Antibody Screen Negative 10/13/19 10/13/19 10/13/19 14:40 14:40 18:00 WBC RBC Hgb Hct MCV MCH MCHC RDW Plt Count MPV Absolute Neuts (auto) Neutrophils % Lymphocytes % Monocytes % Eosinophils % Basophils % Nucleated RBC % PT with INR INR PTT (Actin FS) Sodium 135 L Potassium 4.9 Chloride 104 Carbon Dioxide 24 Anion Gap 6 L BUN 22.5 H Creatinine 1.6 H Est GFR (CKD-EPI)AfAm 50.20 Est GFR (CKD-EPI)NonAf 43.31 POC Glucometer Random Glucose 128 H Lactic Acid 2.2 H* 2.0 Calcium 9.2 Phosphorus Magnesium Total Bilirubin 0.8 AST 57 H ALT 49 Alkaline Phosphatase 160 H Total Protein 7.9 Albumin 3.1 L Triglycerides 115 Lipase 2732 H Urine Color Urine Appearance Urine pH Ur Specific Riley Urine Protein Urine Glucose (UA) Urine Ketones Urine Blood Urine Nitrite Urine Bilirubin Urine Urobilinogen Ur Leukocyte Esterase Urine WBC (Auto) Urine RBC (Auto) Urine Casts (Auto) U Epithel Cells (Auto) Urine Bacteria (Auto) Stool Occult Blood Blood Type Antibody Screen 10/13/19 10/13/19 10/14/19 21:35 23:18 05:35 WBC RBC Hgb Hct MCV MCH MCHC RDW Plt Count MPV Absolute Neuts (auto) Neutrophils % Lymphocytes % Monocytes % Eosinophils % Basophils % Nucleated RBC % PT with INR INR PTT (Actin FS) Sodium Potassium Chloride Carbon Dioxide Anion Gap BUN Creatinine Est GFR (CKD-EPI)AfAm Est GFR (CKD-EPI)NonAf POC Glucometer 88 Random Glucose Lactic Acid Calcium Phosphorus Magnesium Total Bilirubin AST ALT Alkaline Phosphatase Total Protein Albumin Triglycerides Lipase Urine Color Yellow Urine Appearance Clear Urine pH 5.0 D Ur Specific Riley 1.066 H Urine Protein Negative Urine Glucose (UA) Negative Urine Ketones Negative Urine Blood Negative Urine Nitrite Negative Urine Bilirubin Negative Urine Urobilinogen 0.2 Ur Leukocyte Esterase Negative Urine WBC (Auto) 14 Urine RBC (Auto) 13 Urine Casts (Auto) 1 U Epithel Cells (Auto) 8 Urine Bacteria (Auto) 7 Stool Occult Blood Positive Blood Type Antibody Screen 10/14/19 10/14/19 10/14/19 06:36 09:05 09:05 WBC 4.6 RBC 2.96 L Hgb 7.8 L Hct 24.8 L D MCV 83.8 MCH 26.2 MCHC 31.3 L RDW 18.7 H Plt Count 159 D MPV 9.8 Absolute Neuts (auto) 2.2 Neutrophils % 48.8 D Lymphocytes % 19.2 D Monocytes % 16.8 H Eosinophils % 14.5 H D Basophils % 0.7 Nucleated RBC % 0 PT with INR INR PTT (Actin FS) Sodium 138 Potassium 4.1 Chloride 107 Carbon Dioxide 24 Anion Gap 8 BUN 15.5 Creatinine 1.3 Est GFR (CKD-EPI)AfAm 64.52 Est GFR (CKD-EPI)NonAf 55.67 POC Glucometer 90 Random Glucose 84 Lactic Acid Calcium 8.3 L Phosphorus 2.8 Magnesium 1.7 L Total Bilirubin 1.2 H AST 40 H ALT 38 Alkaline Phosphatase 117 Total Protein 6.4 Albumin 2.4 L Triglycerides Lipase Urine Color Urine Appearance Urine pH Ur Specific Riley Urine Protein Urine Glucose (UA) Urine Ketones Urine Blood Urine Nitrite Urine Bilirubin Urine Urobilinogen Ur Leukocyte Esterase Urine WBC (Auto) Urine RBC (Auto) Urine Casts (Auto) U Epithel Cells (Auto) Urine Bacteria (Auto) Stool Occult Blood Blood Type Antibody Screen Active Medications Generic Name Dose Route Start Last Admin Trade Name Freq PRN Reason Stop Dose Admin Enoxaparin Sodium 40 mg 10/14/19 10:00 Lovenox - SQ DAILY SYLVESTER Fentanyl 25 mcg 10/13/19 21:59 10/14/19 05:26 Sublimaze Injection - IVPB 10/14/19 21:29 25 mcg Q6H PRN Administration PAIN LEVEL 7 - 10 Lactated Ringer's 1,000 ml in 1,000 mls @ 200 mls/hr 10/13/19 21:15 10/14/19 05:25 Lactated Ringers Solution IV 200 mls/hr ASDIR SYLVESTER Administration Insulin Aspart 1 vial 10/13/19 22:00 10/14/19 06:40 Novolog Vial Sliding Scale - SQ Not Given ACHS [facility] Protocol Oxycodone HCl 5 mg 10/13/19 22:00 10/14/19 06:38 Roxicodone - PO 5 mg TID SYLVESTER Administration Pantoprazole Sodium 40 mg 10/14/19 10:00 Protonix Iv IVPUSH DAILY SYLVESTER ASSESSMENT/PLAN: Patient is a 68 year old male with past medical history of HLD, NIDDM, St III colorectal cancer s/p ileostomy, presented to the hospital because of persistent epigastric pain for 2 weeks. We have been consulted for further evaluation of anemia. #Anemia -likely 2/2 anemia of chronic disease + iron deficiency -Iron studies on 04/2019 - iron30, TSAT 12%, consistent with iron deficiency -Iron studies added to morning labs pending -IV venofer given x1 -Stool occult positive -GI on board #Rectal CA, past history stage 3 -- s/p chemo, RT #Radiation proctitis, s/p ileostomy -In 2001, pt had colorectal ca with one positive node. Stage III disease. He was treated with RT/Chemotherapy. -In 2011, radiation proctitis requiring ileostomy. Post procedure, hernia repair. -CT AP: rectal thickening and increased soft tissue within presacral space -- as seen on previous CT -can be due to fibrosis 2/2 radiation vs recurrent disease -tumor markers in 04/2019, including CEA, Ca 19-9 and AFP were normal -outpatient PET-CT scan recommended. Patient would need to follow up with PCP/ heme-onc outpatient. Patient pending transfer to [facility] for further management of pancreatic pseudocysts/pancreatitis. Dispo: We will continue to follow the patient. Thank you for this consultative opportunity. Visit type - Medication Review Med list reviewed for High Risk Meds patients 65 and older: Yes - Emergency Visit Emergency Visit: Yes ED Registration Date: 10/13/19 Care time: The patient presented to the Emergency Department on the above date and was hospitalized for further evaluation of their emergent condition. - New Patient This patient is new to me today: Yes Date on this admission: 10/14/19 - Critical Care Critical Care patient: No ATTENDING PHYSICIAN STATEMENT I saw and evaluated the patient. I reviewed the resident's note and discussed the case with the resident. I agree with the resident's findings and plan as documented. SUBJECTIVE: OBJECTIVE: ASSESSMENT AND PLAN:
[2019-10-14 13:59] VITALS: BP 100/58; PULSE 74; TEMP 99.2
--- NOTE | 2019-10-14 14:19 | DS ---
Physical Exam: SUBJECTIVE: Patient seen and examined at bedside. pt is having abdominal pain. OBJECTIVE: Vital Signs Period Temp Pulse Resp BP Sys/[place] Pulse Ox Last 24 Hr 97.5 F-99.2 F 60-98 16-20 90-135/58-82 95-99 PHYSICAL EXAM GENERAL: The patient is awake, alert, and fully oriented, in no acute distress. HEAD: Normal with no signs of trauma. EYES: extraocular movements intact, sclera anicteric LUNGS: Breath sounds equal, clear to auscultation bilaterally, no accessory muscle use. HEART: Regular rate and rhythm, S1, S2 without murmur, rub or gallop. ABDOMEN: Soft, TTP epigastric, RUQ, nondistended, normoactive bowel sounds, no guarding,umbilical hernia. colostomy in place. EXTREMITIES: 2+ pulses, warm, well-perfused, no edema. SKIN: Warm, dry, normal turgor, no rashes or lesions noted. LABS Laboratory Results - last 24 hr 10/13/19 10/13/19 10/13/19 13:40 14:40 14:40 WBC 7.2 RBC 3.68 L Hgb 9.9 L Hct 30.8 L D MCV 83.7 MCH 26.8 MCHC 32.0 RDW 18.7 H Plt Count 238 D MPV 10.2 Absolute Neuts (auto) 5.3 Neutrophils % 73.7 D Lymphocytes % 7.3 L D Monocytes % 13.8 H Eosinophils % 4.5 Basophils % 0.7 Nucleated RBC % 0 PT with INR 15.60 H INR 1.32 H PTT (Actin FS) 27.6 Sodium Potassium Chloride Carbon Dioxide Anion Gap BUN Creatinine Est GFR (CKD-EPI)AfAm Est GFR (CKD-EPI)NonAf POC Glucometer Random Glucose Lactic Acid Calcium Phosphorus Magnesium Total Bilirubin AST ALT Alkaline Phosphatase Total Protein Albumin Triglycerides Lipase Urine Color Urine Appearance Urine pH Ur Specific [place]ff Urine Protein Urine Glucose (UA) Urine Ketones Urine Blood Urine Nitrite Urine Bilirubin Urine Urobilinogen Ur Leukocyte Esterase Urine WBC (Auto) Urine RBC (Auto) Urine Casts (Auto) U Epithel Cells (Auto) Urine Bacteria (Auto) Stool Occult Blood Blood Type O POSITIVE Antibody Screen Negative 10/13/19 10/13/19 10/13/19 14:40 14:40 18:00 WBC RBC Hgb Hct MCV MCH MCHC RDW Plt Count MPV Absolute Neuts (auto) Neutrophils % Lymphocytes % Monocytes % Eosinophils % Basophils % Nucleated RBC % PT with INR INR PTT (Actin FS) Sodium 135 L Potassium 4.9 Chloride 104 Carbon Dioxide 24 Anion Gap 6 L BUN 22.5 H Creatinine 1.6 H Est GFR (CKD-EPI)AfAm 50.20 Est GFR (CKD-EPI)NonAf 43.31 POC Glucometer Random Glucose 128 H Lactic Acid 2.2 H* 2.0 Calcium 9.2 Phosphorus Magnesium Total Bilirubin 0.8 AST 57 H ALT 49 Alkaline Phosphatase 160 H Total Protein 7.9 Albumin 3.1 L Triglycerides 115 Lipase 2732 H Urine Color Urine Appearance Urine pH Ur Specific [place] Urine Protein Urine Glucose (UA) Urine Ketones Urine Blood Urine Nitrite Urine Bilirubin Urine Urobilinogen Ur Leukocyte Esterase Urine WBC (Auto) Urine RBC (Auto) Urine Casts (Auto) U Epithel Cells (Auto) Urine Bacteria (Auto) Stool Occult Blood Blood Type Antibody Screen 10/13/19 10/13/19 10/14/19 21:35 23:18 05:35 WBC RBC Hgb Hct MCV MCH MCHC RDW Plt Count MPV Absolute Neuts (auto) Neutrophils % Lymphocytes % Monocytes % Eosinophils % Basophils % Nucleated RBC % PT with INR INR PTT (Actin FS) Sodium Potassium Chloride Carbon Dioxide Anion Gap BUN Creatinine Est GFR (CKD-EPI)AfAm Est GFR (CKD-EPI)NonAf POC Glucometer 88 Random Glucose Lactic Acid Calcium Phosphorus Magnesium Total Bilirubin AST ALT Alkaline Phosphatase Total Protein Albumin Triglycerides Lipase Urine Color Yellow Urine Appearance Clear Urine pH 5.0 D Ur Specific Graff 1.066 H Urine Protein Negative Urine Glucose (UA) Negative Urine Ketones Negative Urine Blood Negative Urine Nitrite Negative Urine Bilirubin Negative Urine Urobilinogen 0.2 Ur Leukocyte Esterase Negative Urine WBC (Auto) 14 Urine RBC (Auto) 13 Urine Casts (Auto) 1 U Epithel Cells (Auto) 8 Urine Bacteria (Auto) 7 Stool Occult Blood Positive Blood Type Antibody Screen 10/14/19 10/14/19 10/14/19 06:36 09:05 09:05 WBC 4.6 RBC 2.96 L Hgb 7.8 L Hct 24.8 L D MCV 83.8 MCH 26.2 MCHC 31.3 L RDW 18.7 H Plt Count 159 D MPV 9.8 Absolute Neuts (auto) 2.2 Neutrophils % 48.8 D Lymphocytes % 19.2 D Monocytes % 16.8 H Eosinophils % 14.5 H D Basophils % 0.7 Nucleated RBC % 0 PT with INR INR PTT (Actin FS) Sodium 138 Potassium 4.1 Chloride 107 Carbon Dioxide 24 Anion Gap 8 BUN 15.5 Creatinine 1.3 Est GFR (CKD-EPI)AfAm 64.52 Est GFR (CKD-EPI)NonAf 55.67 POC Glucometer 90 Random Glucose 84 Lactic Acid Calcium 8.3 L Phosphorus 2.8 Magnesium 1.7 L Total Bilirubin 1.2 H AST 40 H ALT 38 Alkaline Phosphatase 117 Total Protein 6.4 Albumin 2.4 L Triglycerides Lipase Urine Color Urine Appearance Urine pH Ur Specific [place] Urine Protein Urine Glucose (UA) Urine Ketones Urine Blood Urine Nitrite Urine Bilirubin Urine Urobilinogen Ur Leukocyte Esterase Urine WBC (Auto) Urine RBC (Auto) Urine Casts (Auto) U Epithel Cells (Auto) Urine Bacteria (Auto) Stool Occult Blood Blood Type Antibody Screen HOSPITAL COURSE: Date of Admission:10/13/19 68 yo M patient with PMH of HLD, NIDDM, colo-rectal cancer resection with ileostomy and chemo and radiation, cholecystectomy, and hiatial hernia, who p/w 2 weeks of worsening epigastric pain. Pt had CT abd/pelvis in ED showing 2 pancreatic pseudocyst. lipase 2732. evaluated by GI and surgery. will get MRCP. Pt accepted to [facility] under Dr. Anders Logan. Pending covid. Date of Discharge: 10/14/19 Discharge Summary Reason For Visit: ACUTE KIDNEY INJURY ILEOSTOMY PRESENT PACREATITIS Condition: Guarded - Instructions Diet, Activity, Other Instructions: Transfer to [facility] transfer center Dr. anders Logan Referrals: Neto Davis MD [Primary Care Provider] - Disposition: TRANSFER ACUTE CARE/OTHER HOSP - Home Medications Comprehensive Discharge Medication List: Ambulatory Orders Gabapentin [Neurontin -] 300 mg PO TID 04/25/19 Pantoprazole Sodium [Protonix -] 40 mg PO DAILY 04/25/19 metFORMIN HCL [Metformin HCl ER] 750 mg PO DAILY 04/25/19 Aspirin [ASA -] 81 mg PO DAILY #30 tab.chew 05/02/19 Albuterol Sulfate [Proair Hfa] 2 puff IH BID PRN #1 inhaler 05/10/19 Metoprolol Tartrate [Lopressor -] 12.5 mg PO BID #60 tablet 05/10/19 ATTENDING PHYSICIAN STATEMENT I saw and evaluated the patient. I reviewed the resident's note and discussed the case with the resident. I agree with the resident's findings and plan as documented. SUBJECTIVE: OBJECTIVE: ASSESSMENT AND PLAN:
[2019-10-14] MEDS ORDERED: MAGNESIUM 2GM/50ML STERILE WATER IVPB IVPB ONE (14:48)
--- NOTE | 2019-10-14 14:51 | PN ---
Teaching Attending Note Name of Resident: Tavia Louise ATTENDING PHYSICIAN STATEMENT I saw and evaluated the patient. I reviewed the resident's note and discussed the case with the resident. I agree with the resident's findings and plan as documented. SUBJECTIVE: Complains of ongoing abdominal pain. No nausea/vomiting. No fever/chills. OBJECTIVE: Afebrile, Hemodynamically Stable. AAO x 3. Last Vital Signs Temp Pulse Resp BP Pulse Ox 99.2 F 74 20 100/58 L 98 10/14/19 13:00 10/14/19 13:00 10/14/19 13:00 10/14/19 13:00 10/14/19 13:00 HEENT- Atraumatic, Normocephalic. Heart - S1, S2, RRR Lungs - clear to auscultation Abdomen - Generalized tenderness worse in upper quadrants. Ileostomy RLQ with liquid stool. Extremities - no edema no calf tenderness. Neuro - AAO x 3. Tone/Power normal all 4 extremities. Laboratory Results - last 24 hr 10/13/19 10/13/19 10/13/19 13:40 14:40 14:40 WBC 7.2 RBC 3.68 L Hgb 9.9 L Hct 30.8 L D MCV 83.7 MCH 26.8 MCHC 32.0 RDW 18.7 H Plt Count 238 D MPV 10.2 Absolute Neuts (auto) 5.3 Neutrophils % 73.7 D Lymphocytes % 7.3 L D Monocytes % 13.8 H Eosinophils % 4.5 Basophils % 0.7 Nucleated RBC % 0 PT with INR 15.60 H INR 1.32 H PTT (Actin FS) 27.6 Sodium Potassium Chloride Carbon Dioxide Anion Gap BUN Creatinine Est GFR (CKD-EPI)AfAm Est GFR (CKD-EPI)NonAf POC Glucometer Random Glucose Lactic Acid Calcium Phosphorus Magnesium Iron TIBC Iron Saturation Unsaturated IBC Ferritin Total Bilirubin AST ALT Alkaline Phosphatase Total Protein Albumin Triglycerides Lipase Urine Color Urine Appearance Urine pH Ur Specific [place] Urine Protein Urine Glucose (UA) Urine Ketones Urine Blood Urine Nitrite Urine Bilirubin Urine Urobilinogen Ur Leukocyte Esterase Urine WBC (Auto) Urine RBC (Auto) Urine Casts (Auto) U Epithel Cells (Auto) Urine Bacteria (Auto) Stool Occult Blood Blood Type O POSITIVE Antibody Screen Negative 10/13/19 10/13/19 10/13/19 14:40 14:40 18:00 WBC RBC Hgb Hct MCV MCH MCHC RDW Plt Count MPV Absolute Neuts (auto) Neutrophils % Lymphocytes % Monocytes % Eosinophils % Basophils % Nucleated RBC % PT with INR INR PTT (Actin FS) Sodium 135 L Potassium 4.9 Chloride 104 Carbon Dioxide 24 Anion Gap 6 L BUN 22.5 H Creatinine 1.6 H Est GFR (CKD-EPI)AfAm 50.20 Est GFR (CKD-EPI)NonAf 43.31 POC Glucometer Random Glucose 128 H Lactic Acid 2.2 H* 2.0 Calcium 9.2 Phosphorus Magnesium Iron TIBC Iron Saturation Unsaturated IBC Ferritin Total Bilirubin 0.8 AST 57 H ALT 49 Alkaline Phosphatase 160 H Total Protein 7.9 Albumin 3.1 L Triglycerides 115 Lipase 2732 H Urine Color Urine Appearance Urine pH Ur Specific [place] Urine Protein Urine Glucose (UA) Urine Ketones Urine Blood Urine Nitrite Urine Bilirubin Urine Urobilinogen Ur Leukocyte Esterase Urine WBC (Auto) Urine RBC (Auto) Urine Casts (Auto) U Epithel Cells (Auto) Urine Bacteria (Auto) Stool Occult Blood Blood Type Antibody Screen 10/13/19 10/13/19 10/14/19 21:35 23:18 05:35 WBC RBC Hgb Hct MCV MCH MCHC RDW Plt Count MPV Absolute Neuts (auto) Neutrophils % Lymphocytes % Monocytes % Eosinophils % Basophils % Nucleated RBC % PT with INR INR PTT (Actin FS) Sodium Potassium Chloride Carbon Dioxide Anion Gap BUN Creatinine Est GFR (CKD-EPI)AfAm Est GFR (CKD-EPI)NonAf POC Glucometer 88 Random Glucose Lactic Acid Calcium Phosphorus Magnesium Iron TIBC Iron Saturation Unsaturated IBC Ferritin Total Bilirubin AST ALT Alkaline Phosphatase Total Protein Albumin Triglycerides Lipase Urine Color Yellow Urine Appearance Clear Urine pH 5.0 D Ur Specific [place] 1.066 H Urine Protein Negative Urine Glucose (UA) Negative Urine Ketones Negative Urine Blood Negative Urine Nitrite Negative Urine Bilirubin Negative Urine Urobilinogen 0.2 Ur Leukocyte Esterase Negative Urine WBC (Auto) 14 Urine RBC (Auto) 13 Urine Casts (Auto) 1 U Epithel Cells (Auto) 8 Urine Bacteria (Auto) 7 Stool Occult Blood Positive Blood Type Antibody Screen 10/14/19 10/14/19 10/14/19 06:36 09:05 09:05 WBC 4.6 RBC 2.96 L Hgb 7.8 L Hct 24.8 L D MCV 83.8 MCH 26.2 MCHC 31.3 L RDW 18.7 H Plt Count 159 D MPV 9.8 Absolute Neuts (auto) 2.2 Neutrophils % 48.8 D Lymphocytes % 19.2 D Monocytes % 16.8 H Eosinophils % 14.5 H D Basophils % 0.7 Nucleated RBC % 0 PT with INR INR PTT (Actin FS) Sodium 138 Potassium 4.1 Chloride 107 Carbon Dioxide 24 Anion Gap 8 BUN 15.5 Creatinine 1.3 Est GFR (CKD-EPI)AfAm 64.52 Est GFR (CKD-EPI)NonAf 55.67 POC Glucometer 90 Random Glucose 84 Lactic Acid Calcium 8.3 L Phosphorus 2.8 Magnesium 1.7 L Iron 15 L TIBC 272 Iron Saturation 5 L Unsaturated IBC 257 Ferritin 161.5 Total Bilirubin 1.2 H AST 40 H ALT 38 Alkaline Phosphatase 117 Total Protein 6.4 Albumin 2.4 L Triglycerides Lipase Urine Color Urine Appearance Urine pH Ur Specific [place] Urine Protein Urine Glucose (UA) Urine Ketones Urine Blood Urine Nitrite Urine Bilirubin Urine Urobilinogen Ur Leukocyte Esterase Urine WBC (Auto) Urine RBC (Auto) Urine Casts (Auto) U Epithel Cells (Auto) Urine Bacteria (Auto) Stool Occult Blood Blood Type Antibody Screen Current Medications Generic Name Dose Route Start Last Admin Trade Name Freq PRN Reason Stop Dose Admin Enoxaparin Sodium 40 mg 10/14/19 10:00 10/14/19 12:18 Lovenox - SQ 40 mg DAILY SYLVESTER Administration Lactated Ringer's 1,000 ml in 1,000 mls @ 200 mls/hr 10/13/19 21:15 10/14/19 12:47 Lactated Ringers Solution IV 200 mls/hr ASDIR SYLVESTER Administration Insulin Aspart 1 vial 10/13/19 22:00 10/14/19 12:17 Novolog Vial Sliding Scale - SQ Not Given ACHS [facility] Protocol Magnesium Sulfate 2 gm 10/14/19 14:48 Magnesium Sulfate IVPB 10/14/19 14:49 ONCE ONE Morphine Sulfate 2 mg 10/14/19 14:52 Morphine Sulfate IVPUSH Q4H PRN PAIN LEVEL 6-10 Oxycodone HCl 5 mg 10/13/19 22:00 10/14/19 14:46 Roxicodone - PO 5 mg TID SYLVESTER Administration Pantoprazole Sodium 40 mg 10/14/19 10:00 10/14/19 12:18 Protonix Iv IVPUSH 40 mg DAILY SYLVESTER Administration Home Medications Medication Instructions Recorded Gabapentin [Neurontin -] 300 mg PO TID 04/25/19 Pantoprazole Sodium [Protonix -] 40 mg PO DAILY 04/25/19 metFORMIN HCL [Metformin HCl ER] 750 mg PO DAILY 04/25/19 Aspirin [ASA -] 81 mg PO DAILY #30 tab.chew 05/02/19 Albuterol Sulfate [Proair Hfa] 2 puff IH BID PRN #1 inhaler 05/10/19 Metoprolol Tartrate [Lopressor -] 12.5 mg PO BID #60 tablet 05/10/19 ASSESSMENT AND PLAN: 68 year old male with history of HLD, DM 2, Hx colo-rectal cancer s/p resection with ileostomy, s/p CTx/RTx, s/p cholecystectomy/prostatectomy, recent bout of acute pancreatitis, presents with 2 week history of worsening abdominal pain, found to have multiple pancreatic pseudocysts on CT. 1. Acute Pancreatitis, recurrent, with multiple pseudocysts Lipase 2732 NPO/IV Fluids/IV Analgesia GI/Surgery consults 2. ARAVIND - resolved with IV hydration. Renal US - L mid kidney simple cyst, no obstruction. 3. DM 2 - Metformin held. Maintain on Novolog sliding scale. 4. Normocytic anemia, multifactorial. EDVIN - Iron Sat 5%, FOBT s/p (ileostomy) s/p IV Venofer. Hematology/Oncology consulted on admission. 5. HTN - Continue Metoprolol. 6. Hypomagnesemia - repleted. DVT Px - Lovenox SQ. GI Px - PPI.
[2019-10-14] MEDS ORDERED: MORPHINE SULFATE 2 MG/ML VIAL IVPUSH PRN (14:52)
--- NOTE | 2019-10-14 14:56 | CONSULT ---
Consult Consult Specialty:: Nephrology Reason for Consultation:: manjeet - History of Present Illness Chief Complaint: epigastric pain History of Present Illness: Pt is a 68 year old male with pmhx of hld, dm, colo-rectal ca who presents to the ER with worsening abd pain. Pain is in the epigastric area. 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 He complains of decreased PO intake. He has an ileostomy bag and changes it about 6 times per day. He has history of etoh use however he stopped in April. - History Source History Provided By: Patient - Past Medical History Cardio/Vascular: Yes: Hyperlipdemia Pulmonary: Yes: Bronchitis Gastrointestinal: Yes: Cancer, Other (colo-rectal ca treated with RT and chemotherapy in 2001; radiation proctitis in 2011 treated with ileostomy) Renal/: Yes: BPH Infectious Disease: Yes: Other (pelvic abscess) - Past Surgical History Past Surgical History: Yes: Colectomy (LAR for history of anastamotic ulcer / fecal incontinence), Hernia Repair, Ileosotomy - Alcohol/Substance Use Hx Alcohol Use: Yes - Smoking History Smoking history: Former smoker Have you smoked in the past 12 months: No If you are a former smoker, when did you quit?: Over 30 years ago - Social History Usual Living Arrangement: With Spouse History of Recent Travel: No Home Medications - Allergies Allergies/Adverse Reactions: Allergies Allergy/AdvReac Type Severity Reaction Status Date / Time Penicillins Allergy Severe Difficulty Verified 04/27/19 18:52 Breathing adhesive tape AdvReac Rash Verified 04/26/19 05:53 hydromorphone HCl AdvReac halucinatio Verified 04/26/19 05:53 [From Dilaudid] ns - Home Medications Home Medications: Ambulatory Orders Gabapentin [Neurontin -] 300 mg PO TID 04/25/19 Pantoprazole Sodium [Protonix -] 40 mg PO DAILY 04/25/19 metFORMIN HCL [Metformin HCl ER] 750 mg PO DAILY 04/25/19 Aspirin [ASA -] 81 mg PO DAILY #30 tab.chew 05/02/19 Albuterol Sulfate [Proair Hfa] 2 puff IH BID PRN #1 inhaler 05/10/19 Metoprolol Tartrate [Lopressor -] 12.5 mg PO BID #60 tablet 05/10/19 Family Medical History Family Hx Cancer: Mother Family Hx Coronary Artery Disease: Father Review of Systems - Review of Systems Constitutional: reports: Loss of Appetite Eyes: reports: No Symptoms HENT: reports: No Symptoms Neck: reports: No Symptoms Cardiovascular: reports: No Symptoms Respiratory: reports: No Symptoms Gastrointestinal: reports: Abdominal Pain Genitourinary: reports: No Symptoms Musculoskeletal: reports: No Symptoms Integumentary: reports: No Symptoms Neurological: reports: No Symptoms Endocrine: reports: No Symptoms Hematology/Lymphatic: reports: No Symptoms Psychiatric: reports: No Symptoms Physical Exam Vital Signs: Vital Signs Temperature 99.2 F 10/14/19 13:00 Pulse Rate 74 10/14/19 13:00 Respiratory Rate 20 10/14/19 13:00 Blood Pressure 100/58 L 10/14/19 13:00 O2 Sat by Pulse Oximetry (%) 98 10/14/19 13:00 Constitutional: Yes: Calm Eyes: Yes: Conjunctiva Clear HENT: Yes: Atraumatic Neck: Yes: Supple Cardiovascular: Yes: S1, S2 Respiratory: Yes: CTA Bilaterally Gastrointestinal: Yes: Normal Bowel Sounds, Soft Renal/: Yes: WNL Musculoskeletal: Yes: WNL Edema: No Neurological: Yes: Oriented Psychiatric: Yes: Oriented Labs: CBC, BMP 10/14/19 09:05 10/14/19 09:05 Imaging - Results Cat Scan: Report Reviewed Problem List - Problems (1) Benign localized hyperplasia of prostate with urinary retention Code(s): N40.1 - BENIGN PROSTATIC HYPERPLASIA WITH LOWER URINARY TRACT SYMP (2) Anemia Code(s): D64.9 - ANEMIA, UNSPECIFIED Assessment/Plan Current Medications Generic Name Dose Route Start Last Admin Trade Name Arianna PRN Reason Stop Dose Admin Enoxaparin Sodium 40 mg 10/14/19 10:00 10/14/19 12:18 Lovenox - SQ 40 mg DAILY SYLVESTER Administration Lactated Ringer's 1,000 ml in 1,000 mls @ 200 mls/hr 10/13/19 21:15 10/14/19 12:47 Lactated Ringers Solution IV 200 mls/hr ASDIR SYLVESTER Administration Insulin Aspart 1 vial 10/13/19 22:00 10/14/19 12:17 Novolog Vial Sliding Scale - SQ Not Given ACHS SYLVESTER Protocol Magnesium Sulfate 2 gm 10/14/19 14:48 Magnesium Sulfate IVPB 10/14/19 14:49 ONCE ONE Morphine Sulfate 2 mg 10/14/19 14:52 Morphine Sulfate IVPUSH Q4H PRN PAIN LEVEL 6-10 Oxycodone HCl 5 mg 10/13/19 22:00 10/14/19 14:46 Roxicodone - PO 5 mg TID SYLVESTER Administration Pantoprazole Sodium 40 mg 10/14/19 10:00 10/14/19 12:18 Protonix Iv IVPUSH 40 mg DAILY SYLVESTER Administration Impression 1. manjeet likely from dehydration 2. hx colorectal ca 3. dm 4. hld 5. abd pain Plan - renal function improving - likely dehydration - cont fluids - pt being transferred to [facility] for further management - check labs in am if he is not transferred today - replace mag
[2019-10-14] MEDS ORDERED: LACTATED RINGERS SOLUTION 1,000 ML/1,000 ML INFUS.BAG IV SCH (15:03)
--- NOTE | 2019-10-14 16:50 | PN ---
Teaching Attending Note Name of Resident: Loren Lane ATTENDING PHYSICIAN STATEMENT I saw and evaluated the patient. I reviewed the resident's note and discussed the case with the resident. I agree with the resident's findings and plan as documented. 68 M with hx of rectal ca s/p LAR and chemoRT in 2001 cb ileostomy in 2011 from persistent anastamotic ulcer and fecal incontinence presents with abdominal pain and found to have acute pancreatitis with multiple peripancreatic fluid collections. Also with ETOH use. Hb ~9 on admission, today 7.8; looks like his baseline is ~8 and has baseline Scr 1.5 so probably multifactorial. Hb 7.8 most likely dilutional from all the fluids . Patient to be transferred to [facility] but in the event that he is still here in the am would obtain iron panel/B12/folate .
== END 2019-10-14 18:14 | disposition short-term general hospital (02) | DRG 439 ==
LOC: JER 12:13 → JERBED 19:21 → J5S 20:29
PROVIDERS: ADMIT Internal Medicine
DX: K85.90 Acute pancreatitis without necrosis or infection, unspecified (principal); K86.3 Pseudocyst of pancreas; N17.9 Acute kidney failure, unspecified; E46 Unspecified protein-calorie malnutrition; K86.1 Other chronic pancreatitis; E78.5 Hyperlipidemia, unspecified; E11.9 Type 2 diabetes mellitus without complications; E11.22 Type 2 diabetes mellitus with diabetic chronic kidney disease; D64.9 Anemia, unspecified; N18.9 Chronic kidney disease, unspecified; N40.0 Benign prostatic hyperplasia without lower urinary tract symptoms; E83.42 Hypomagnesemia; E86.0 Dehydration; Z68.25 Body mass index [BMI] 25.0-25.9, adult; D63.8 Anemia in other chronic diseases classified elsewhere; D50.9 Iron deficiency anemia, unspecified; Z88.1 Allergy status to other antibiotic agents; Z85.038 Personal history of other malignant neoplasm of large intestine
CPT/HCPCS: 36415; 74177-TC; 76775-TC; 80053; 81003; 82272; 82607; 82728; 82746; 82962; 83540; 83550; 83605; 83690; 83735; 84100; 84478; 85025; 85610; 85730; 86850; 86900; 86901; 93005; 93010; 99285-25; J0131; Q9967; U0003

== ENCOUNTER 2023-11-06 08:57 | Observation (INO) | payer OTHER ==
[2023-11-06 09:59] LABS: HEMATOCRIT 34.8 % (35.4-49); HEMOGLOBIN 11.4 G/dL (11.7-16.9); MCH 33.9 pg (25.7-33.7); MCHC 32.7 g/dl (32.0-35.9); MEAN CELL VOLUME 103.6 fl (80-96); MEAN PLT VOLUME 10.2 fl (7.5-11.1); PLATELET COUNT 128.3 10^3/uL (134-434); RBC 3.36 10^6/uL (4.00-5.60); RDW 14.5 % (11.9-15.9); WHITE BLOOD COUNT 4.5 10^3/uL (4.0-10.8)
[2023-11-06 10:09] LABS: INR 1.16 (0.83-1.09); PROTHROMBIN TIME (PATIENT) 13.2 SEC (9.7-13.0)
[2023-11-06 10:11] LABS: ACTIVATED PTT 28.2 SECONDS (25.2-36.5)
[2023-11-06 10:20] LABS: ALBUMIN 3.9 g/dl (3.4-5.0); BILIRUBIN,TOTAL 1.1 mg/dl (0.2-1); CALCIUM 8.8 mg/dl (8.5-10.1); CREATININE 2.1 mg/dl (0.6-1.3); MAGNESIUM 1.4 mg/dL (1.8-2.4); PHOSPHOROUS 2.8 (2.5-4.9); POTASSIUM 3.5 mmol/L (3.5-5.1); TOT PROT 7.8 g/dl (6.4-8.2)
[2023-11-06 10:59] LABS: PLATELET ESTIMATE ADEQUATE
[2023-11-06] MEDS: ACETAMINOPHEN 1000 MG/100 ML BAG IVPB ONE (11:45)
[2023-11-06] MEDS: SODIUM CHLORIDE 1,000 ML IV STA (11:45)
[2023-11-06] MEDS ORDERED: ACETAMINOPHEN INJECTION 100 ML ONE (11:48)
[2023-11-06] MEDS: SODIUM CHLORIDE 1,000 ML IV SCH (14:32)
[2023-11-06] MEDS: GABAPENTIN 100 MG CAPSULE PO SCH (14:33)
[2023-11-06] MEDS: INSULIN ASPART SLIDING SCALE (NOVOLOG) 1 VIAL SQ SCH (18:14)
[2023-11-06] MEDS: ACETAMINOPHEN 500 MG TABLET (FP) PO PRN (21:10)
[2023-11-06] MEDS: LIDOCAINE PATCH REMOVAL MC SCH (21:39)
[2023-11-07] MEDS ORDERED: TAMSULOSIN HCL 0.4 MG CAP PO SCH (08:30)
[2023-11-07] MEDS: TAMSULOSIN HCL 0.4 MG CAP PO SCH (09:12)
[2023-11-07] MEDS: PANTOPRAZOLE 40 MG TABLET PO SCH (09:12)
[2023-11-07] MEDS: LIDOCAINE 5% TOPICAL PATCH TP SCH (09:12)
[2023-11-07 11:38] LABS: ALBUMIN 3.3 g/dl (3.4-5.0); BILIRUBIN,TOTAL 0.6 mg/dl (0.2-1); CALCIUM 8.3 mg/dl (8.5-10.1); CREATININE 1.8 mg/dl (0.6-1.3); MAGNESIUM 1.5 mg/dL (1.8-2.4); PHOSPHOROUS 3.1 (2.5-4.9); POTASSIUM 3.4 mmol/L (3.5-5.1); TOT PROT 6.6 g/dl (6.4-8.2)
[2023-11-07 12:12] LABS: BASO % 0.2 % (0-2.0); HEMATOCRIT 29.5 % (35.4-49); HEMOGLOBIN 9.8 GM/dL (11.7-16.9); LYMPH % 21.2 % (8-40); MCH 34.5 pg (25.7-33.7); MCHC 33.2 g/dl (32.0-35.9); MEAN CELL VOLUME 104.1 fl (80-96); MEAN PLT VOLUME 9.1 fl (7.5-11.1); NEUT % 59.6 % (42.8-82.8); PLATELET COUNT 106 10^3/uL (134-434); RBC 2.83 M/mm3 (4.00-5.60); RDW 15.9 % (11.9-15.9); WHITE BLOOD COUNT 3.3 K/mm3 (4.0-10.0)
[2023-11-07] MEDS: POTASSIUM CHLORIDE ORAL LIQUID 20 MEQ/15 ML PO ONE (13:10)
[2023-11-07] MEDS: MAGNESIUM SULF 50% (8.12 MEQ/2 ML-1 GM VIAL) IVPB ONE (13:11)
[2023-11-08 08:03] LABS: HEMATOCRIT 29.9 % (35.4-49); HEMOGLOBIN 9.6 G/dL (11.7-16.9); MCH 34.2 pg (25.7-33.7); MEAN CELL VOLUME 106.7 fl (80-96); MEAN PLT VOLUME 9.6 fl (7.5-11.1); PLATELET COUNT 107.1 10^3/uL (134-434); RDW 14.4 % (11.9-15.9); WHITE BLOOD COUNT 3.4 10^3/uL (4.0-10.8)
[2023-11-08 08:57] LABS: CALCIUM 8.3 mg/dl (8.5-10.1); CREATININE 1.6 mg/dl (0.6-1.3); MAGNESIUM 1.9 mg/dL (1.8-2.4); PHOSPHOROUS 2.7 (2.5-4.9)
[2023-11-08] MEDS: oxyCODONE HCL 5 MG TABLET PO PRN (09:36)
[2023-11-08] MEDS: METHYL SALICYLATE/MENTHOL 30 GM TUBE TP SCH (11:10)
[2023-11-08 21:53] VITALS: BMI 21.7
[2023-11-08] MEDS: ASCORBIC ACID 250 MG TABLET (FP) PO SCH (22:08)
[2023-11-08] MEDS: MULTIVITAMINS (DAILY MVI) TABLET (FP) PO SCH (22:08)
[2023-11-09 06:40] VITALS: TEMP 98
[2023-11-09 08:14] LABS: HEMATOCRIT 29.2 % (35.4-49); MCH 33.1 pg (25.7-33.7); MEAN CELL VOLUME 106.8 fl (80-96); MEAN PLT VOLUME 9.6 fl (7.5-11.1); RBC 2.73 10^6/uL (4.00-5.60); RDW 14.4 % (11.9-15.9); WHITE BLOOD COUNT 3.6 10^3/uL (4.0-10.8)
[2023-11-09 09:08] VITALS: BP 112/70; PULSE 97; RESP 18
[2023-11-09 09:21] LABS: CALCIUM 8.3 mg/dl (8.5-10.1); CREATININE 1.7 mg/dl (0.6-1.3); MAGNESIUM 1.6 mg/dL (1.8-2.4); PHOSPHOROUS 2.9 (2.5-4.9)
== END 2023-11-09 13:05 | disposition home or self-care (01) ==
LOC: FER 08:57 → FM/S 12:39
PROVIDERS: ADMIT Internal Medicine; ATTEND Internal Medicine
PROC: 3E033NZ Introduction of Analgesics, Hypnotics, Sedatives into Peripheral Vein, Percutaneous Approach (ICD-10-PCS; principal; 2023-11-06)
PROC: 3E0337Z Introduction of Electrolytic and Water Balance Substance into Peripheral Vein, Percutaneous Approach (ICD-10-PCS; 2023-11-06)
PROC: 0T9B70Z Drainage of Bladder with Drainage Device, Via Natural or Artificial Opening (ICD-10-PCS; 2023-11-06)
DX: N13.9 Obstructive and reflux uropathy, unspecified (principal); N17.9 Acute kidney failure, unspecified; E78.5 Hyperlipidemia, unspecified; E11.9 Type 2 diabetes mellitus without complications; Z85.038 Personal history of other malignant neoplasm of large intestine; Z88.0 Allergy status to penicillin; Z87.891 Personal history of nicotine dependence; N40.0 Benign prostatic hyperplasia without lower urinary tract symptoms
CPT/HCPCS: 36415; 51702; 80048; 80053; 81003; 82962; 83735; 84100; 85025; 85027; 85610; 85730; 86850; 86900; 86901; 87086; 96361; 96374; 96375; 99285-25; G0378; J0131

== ENCOUNTER 2023-11-20 13:43 | Inpatient (IN) | payer OTHER ==
[2023-11-20 15:19] LABS: BASO % 0.3 % (0-2.0); EOS % 0.7 % (0-4.5); HEMATOCRIT 32.8 % (35.4-49); HEMOGLOBIN 10.9 GM/dL (11.7-16.9); LYMPH % 17.5 % (8-40); MCHC 33.3 g/dl (32.0-35.9); MEAN CELL VOLUME 98.8 fl (80-96); MEAN PLT VOLUME 9.7 fl (7.5-11.1); MONO % 18.9 % (3.8-10.2); NEUT % 62.6 % (42.8-82.8); PLATELET COUNT 167 10^3/uL (134-434); RBC 3.32 M/mm3 (4.00-5.60); WHITE BLOOD COUNT 5.1 K/mm3 (4.0-10.0)
[2023-11-20 15:25] LABS: INR 1.2 (0.83-1.09); PROTHROMBIN TIME (PATIENT) 13.7 SEC (9.7-13.0)
[2023-11-20 15:35] LABS: POTASSIUM 3.8 mmol/L (3.5-5.1)
[2023-11-20 15:39] LABS: ALBUMIN 3.1 g/dl (3.4-5.0); BLOOD UREA NITROGEN 17.3 mg/dL (7-18); CALCIUM 9.1 mg/dL (8.5-10.1)
[2023-11-20 15:42] LABS: CREATININE 1.9 mg/dL (0.55-1.3)
[2023-11-20 15:44] LABS: BILIRUBIN,TOTAL 1.1 mg/dL (0.2-1)
[2023-11-20 16:43] LABS: PH,URINE 5.5 (5.0-8.0); URINE APPEARANCE CLEAR; URINE BILIRUBIN NEGATIVE (NEGATIVE); URINE COLOR YELLOW; URINE GLUCOSE (UA) NEGATIVE (NEGATIVE); URINE KETONE NEGATIVE (NEGATIVE); URINE LEUK ESTERASE NEGATIVE (NEGATIVE); URINE NITRITE NEGATIVE (NEGATIVE); URINE PROTEIN TRACE (NEGATIVE); URINE UROBILINOGEN 0.2 mg/dL (0.2-1.0)
[2023-11-20] MEDS ORDERED: KETOROLAC TROMETHAMINE 15 MG/ML VIAL ONE (17:04)
[2023-11-20] MEDS: KETOROLAC TROMETHAMINE 15 MG/ML VIAL IVPUSH ONE (17:16)
[2023-11-20] MEDS ORDERED: MORPHINE SULFATE 2 MG/ML SYRINGE ONE (18:14)
[2023-11-20] MEDS: morphine CARPU-JECT 2 MG/1 ML DISP.SYRIN IVPUSH ONE (18:21)
[2023-11-21] MEDS: CIPROFLOXACIN 400 MG/D5W 400 MG/200 ML IVPB IVPB ONE (00:58)
[2023-11-21] MEDS: ACETAMINOPHEN 1000 MG/100 ML BAG IVPB ONE (00:58)
[2023-11-21 02:14] VITALS: BMI 26.9
[2023-11-21] MEDS ORDERED: ACETAMINOPHEN 325 MG TABLET (FP) PO PRN (02:18)
[2023-11-21] MEDS: GABAPENTIN 100 MG CAPSULE PO SCH (06:33)
[2023-11-21 09:20] LABS: HEMATOCRIT 29.2 % (35.4-49); HEMOGLOBIN 9.4 GM/dL (11.7-16.9); MCH 32.6 pg (25.7-33.7); MCHC 32.2 g/dl (32.0-35.9); MEAN CELL VOLUME 101.3 fl (80-96); MEAN PLT VOLUME 9.7 fl (7.5-11.1); PLATELET COUNT 119 10^3/uL (134-434); RBC 2.88 M/mm3 (4.00-5.60); RDW 15.7 % (11.9-15.9); WHITE BLOOD COUNT 3.4 K/mm3 (4.0-10.0)
[2023-11-21] MEDS ORDERED: metroNIDAZOLE 250 MG TABLET PO SCH (10:00)
[2023-11-21] MEDS: PANTOPRAZOLE 40 MG TABLET PO SCH (10:50)
[2023-11-21 10:51] LABS: ANISOCYTOSIS 2+; MACROCYTOSIS 2+
[2023-11-21 11:30] LABS: POTASSIUM 3.6 mmol/L (3.5-5.1)
[2023-11-21 11:38] LABS: CALCIUM 8.6 mg/dL (8.5-10.1)
[2023-11-21 11:39] LABS: ALBUMIN 2.7 g/dl (3.4-5.0); BLOOD UREA NITROGEN 18.3 mg/dL (7-18); MAGNESIUM 1.5 mg/dL (1.8-2.4)
[2023-11-21 11:43] LABS: BILIRUBIN,TOTAL 0.5 mg/dL (0.2-1); CREATININE 1.8 mg/dL (0.55-1.3); PHOSPHOROUS 3.4 mg/dL (2.5-4.9); TOT PROT 7.1 g/dl (6.4-8.2)
[2023-11-21] MEDS: metroNIDAZOLE 250 MG TABLET PO SCH (12:35)
[2023-11-21] MEDS: ATORVASTATIN CA 40 MG TABLET (FP) PO SCH (21:20)
[2023-11-21] MEDS: FERROUS SO4 325 MG TABLET (FP) PO SCH (21:20)
[2023-11-22 08:55] LABS: HEMATOCRIT 28.1 % (35.4-49); HEMOGLOBIN 9.4 GM/dL (11.7-16.9); MCH 33.1 pg (25.7-33.7); MCHC 33.4 g/dl (32.0-35.9); MEAN CELL VOLUME 99.2 fl (80-96); MEAN PLT VOLUME 9.4 fl (7.5-11.1); PLATELET COUNT 114 10^3/uL (134-434); RBC 2.84 M/mm3 (4.00-5.60); RDW 15.6 % (11.9-15.9); WHITE BLOOD COUNT 3.7 K/mm3 (4.0-10.0)
[2023-11-22 10:00] LABS: CALCIUM 8.8 mg/dL (8.5-10.1)
[2023-11-22 10:02] LABS: ALBUMIN 2.7 g/dl (3.4-5.0); BLOOD UREA NITROGEN 19.1 mg/dL (7-18); MAGNESIUM 1.6 mg/dL (1.8-2.4)
[2023-11-22 10:06] LABS: BILIRUBIN,TOTAL 0.4 mg/dL (0.2-1)
[2023-11-22 10:08] LABS: CREATININE 1.9 mg/dL (0.55-1.3)
[2023-11-22 10:10] LABS: TOT PROT 6.9 g/dl (6.4-8.2)
[2023-11-22] MEDS: SODIUM CHLORIDE 1,000 ML IV SCH (13:46)
[2023-11-23 10:00] LABS: HEMATOCRIT 28.2 % (35.4-49); HEMOGLOBIN 9.2 GM/dL (11.7-16.9); MCH 32.6 pg (25.7-33.7); MCHC 32.7 g/dl (32.0-35.9); MEAN CELL VOLUME 99.9 fl (80-96); MEAN PLT VOLUME 9.4 fl (7.5-11.1); PLATELET COUNT 111 10^3/uL (134-434); RBC 2.82 M/mm3 (4.00-5.60); RDW 15.5 % (11.9-15.9); WHITE BLOOD COUNT 3.5 K/mm3 (4.0-10.0)
[2023-11-23 10:22] LABS: POTASSIUM 3.8 mmol/L (3.5-5.1)
[2023-11-23 10:32] LABS: ALBUMIN 2.6 g/dl (3.4-5.0); CALCIUM 8.5 mg/dL (8.5-10.1)
[2023-11-23 10:33] LABS: BLOOD UREA NITROGEN 17.4 mg/dL (7-18); MAGNESIUM 1.6 mg/dL (1.8-2.4)
[2023-11-23 10:36] LABS: BILIRUBIN,TOTAL 0.4 mg/dL (0.2-1); CREATININE 1.7 mg/dL (0.55-1.3)
[2023-11-23 10:37] LABS: TOT PROT 6.8 g/dl (6.4-8.2)
[2023-11-24 09:14] LABS: BASO % 0.5 % (0-2.0); EOS % 2.1 % (0-4.5); HEMATOCRIT 28.3 % (35.4-49); HEMOGLOBIN 9.3 GM/dL (11.7-16.9); LYMPH % 21.1 % (8-40); MCH 32.5 pg (25.7-33.7); MCHC 32.8 g/dl (32.0-35.9); MEAN CELL VOLUME 98.9 fl (80-96); MEAN PLT VOLUME 9.7 fl (7.5-11.1); MONO % 19.3 % (3.8-10.2); PLATELET COUNT 109 10^3/uL (134-434); RBC 2.86 M/mm3 (4.00-5.60); RDW 15.7 % (11.9-15.9); WHITE BLOOD COUNT 4.1 K/mm3 (4.0-10.0)
[2023-11-24 09:32] LABS: POTASSIUM 3.7 mmol/L (3.5-5.1)
[2023-11-24 09:37] LABS: ALBUMIN 2.6 g/dl (3.4-5.0); CALCIUM 7.9 mg/dL (8.5-10.1); MAGNESIUM 1.5 mg/dL (1.8-2.4)
[2023-11-24 09:38] LABS: BLOOD UREA NITROGEN 15.4 mg/dL (7-18)
[2023-11-24 09:40] LABS: CREATININE 1.7 mg/dL (0.55-1.3)
[2023-11-24 09:41] LABS: BILIRUBIN,TOTAL 0.8 mg/dL (0.2-1); TOT PROT 6.8 g/dl (6.4-8.2)
[2023-11-24] MEDS: ACETAMINOPHEN 1000 MG/100 ML BAG IVPB PRN (10:01)
[2023-11-25 11:08] LABS: BASO % 0.2 % (0-2.0); EOS % 2.2 % (0-4.5); HEMATOCRIT 28.9 % (35.4-49); HEMOGLOBIN 9.6 GM/dL (11.7-16.9); LYMPH % 21.2 % (8-40); MCH 32.9 pg (25.7-33.7); MCHC 33.4 g/dl (32.0-35.9); MEAN CELL VOLUME 98.5 fl (80-96); MEAN PLT VOLUME 9.8 fl (7.5-11.1); MONO % 18.7 % (3.8-10.2); NEUT % 57.7 % (42.8-82.8); PLATELET COUNT 100 10^3/uL (134-434); RBC 2.93 M/mm3 (4.00-5.60); RDW 15.9 % (11.9-15.9); WHITE BLOOD COUNT 3.1 K/mm3 (4.0-10.0)
[2023-11-25] MEDS: oxyCODONE HCL 5 MG TABLET PO PRN (14:30)
[2023-11-25] MEDS: SUCRALFATE 1 GM/10 ML UNIT DOSE CUPS NR SCH (21:12)
[2023-11-26 09:10] LABS: HEMATOCRIT 28.3 % (35.4-49); HEMOGLOBIN 9.6 GM/dL (11.7-16.9); MCH 33.3 pg (25.7-33.7); MCHC 33.8 g/dl (32.0-35.9); MEAN CELL VOLUME 98.4 fl (80-96); MEAN PLT VOLUME 9.7 fl (7.5-11.1); PLATELET COUNT 104 10^3/uL (134-434); RBC 2.88 M/mm3 (4.00-5.60); RDW 15.8 % (11.9-15.9); WHITE BLOOD COUNT 3.3 K/mm3 (4.0-10.0)
[2023-11-26 09:44] LABS: POTASSIUM 3.8 mmol/L (3.5-5.1)
[2023-11-26 09:47] LABS: ANISOCYTOSIS 0; MACROCYTOSIS 0
[2023-11-26 10:02] LABS: ALBUMIN 2.6 g/dl (3.4-5.0); BLOOD UREA NITROGEN 14.4 mg/dL (7-18); MAGNESIUM 1.3 mg/dL (1.8-2.4)
[2023-11-26 10:05] LABS: CREATININE 1.6 mg/dL (0.55-1.3)
[2023-11-26 10:07] LABS: BILIRUBIN,TOTAL 0.5 mg/dL (0.2-1); TOT PROT 6.5 g/dl (6.4-8.2)
[2023-11-26] MEDS ORDERED: FENTANYL PATCH WASTE TD PRN (13:11)
[2023-11-26] MEDS: fentaNYL 12mcg/hr PATCH.TD72 TD SCH (13:52)
[2023-11-26] MEDS: MAGNESIUM 2GM/50ML STERILE WATER IVPB IVPB ONE (17:18)
[2023-11-26] MEDS: oxyCODONE HCL 5 MG TABLET PO PRN (17:33)
[2023-11-26] MEDS: metroNIDAZOLE 250 MG TABLET PO SCH (21:23)
[2023-11-27 10:46] LABS: HEMATOCRIT 31.3 % (35.4-49); HEMOGLOBIN 10.2 GM/dL (11.7-16.9); MCH 32.5 pg (25.7-33.7); MCHC 32.5 g/dl (32.0-35.9); MEAN CELL VOLUME 100.1 fl (80-96); MEAN PLT VOLUME 9.9 fl (7.5-11.1); PLATELET COUNT 113 10^3/uL (134-434); RBC 3.12 M/mm3 (4.00-5.60); WHITE BLOOD COUNT 3.4 K/mm3 (4.0-10.0)
[2023-11-27 10:55] LABS: POTASSIUM 4.2 mmol/L (3.5-5.1)
[2023-11-27 11:01] LABS: CALCIUM 8.4 mg/dL (8.5-10.1)
[2023-11-27 11:02] LABS: ALBUMIN 2.8 g/dl (3.4-5.0); BLOOD UREA NITROGEN 11.4 mg/dL (7-18)
[2023-11-27 11:05] LABS: CREATININE 1.7 mg/dL (0.55-1.3)
[2023-11-27 11:06] LABS: BILIRUBIN,TOTAL 0.4 mg/dL (0.2-1); TOT PROT 7.1 g/dl (6.4-8.2)
[2023-11-27 12:03] LABS: ANISOCYTOSIS 0; MACROCYTOSIS 0
[2023-11-27] MEDS: ACETAMINOPHEN 325 MG TABLET (FP) PO SCH (17:33)
[2023-11-27] MEDS: LIDOCAINE 5% TOPICAL PATCH TP SCH (17:33)
[2023-11-27] MEDS: LIDOCAINE PATCH REMOVAL MC SCH (21:38)
[2023-11-28 11:07] VITALS: BP 94/59; PULSE 70; RESP 20; TEMP 98.3
== END 2023-11-28 13:14 | disposition home or self-care (01) | DRG 394 ==
LOC: JER 13:43 → INTOOBSV 23:21 → JERBED 23:21 → J8W 11-21 01:14 → OBSVTOIN 11-22 12:30
PROVIDERS: ADMIT Internal Medicine; ATTEND Nurse Practitioner Family
PROC: 0DJD8ZZ Inspection of Lower Intestinal Tract, Via Natural or Artificial Opening Endoscopic (ICD-10-PCS; principal; 2023-11-24 12:00)
DX: K62.7 Radiation proctitis (principal); K62.5 Hemorrhage of anus and rectum; K63.2 Fistula of intestine; R79.89 Other specified abnormal findings of blood chemistry; R33.9 Retention of urine, unspecified; G62.9 Polyneuropathy, unspecified; N40.1 Benign prostatic hyperplasia with lower urinary tract symptoms; R33.8 Other retention of urine; K42.9 Umbilical hernia without obstruction or gangrene; D64.9 Anemia, unspecified; F43.20 Adjustment disorder, unspecified; F32.A Depression, unspecified; Z93.2 Ileostomy status; Z85.048 Personal history of other malignant neoplasm of rectum, rectosigmoid junction, and anus
CPT/HCPCS: 36415; 74178-TC; 76700-TC; 76775-TC; 80053; 81003; 82550; 82607; 82728; 82746; 82962; 82977; 83036; 83540; 83550; 83735; 84100; 84466; 85025; 85027; 85045; 85610; 86704; 86708; 86709; 86803; 86850; 86900; 86901; 87086; 87340; 87517; 93005; 93010; 97116-GP; 97161-GP; 99285-25; G0378; J0131

== ENCOUNTER 2023-12-20 15:02 | Emergency (ER) | payer OTHER ==
[2023-12-20 15:10] VITALS: BP 114/77; PULSE 107; RESP 18; TEMP 98.7; BMI 25.7
== END 2023-12-20 17:14 | disposition home or self-care (01) ==
LOC: JER 15:02
DX: T83.091A Other mechanical complication of indwelling urethral catheter, initial encounter (principal); R33.9 Retention of urine, unspecified
CPT/HCPCS: 99282-25

== ENCOUNTER 2024-01-22 22:58 | Inpatient (IN) | payer OTHER ==
[2024-01-22] MEDS ORDERED: ACETAMINOPHEN INJECTION 100 ML ONE (23:30)
[2024-01-22] MEDS: ACETAMINOPHEN 1000 MG/100 ML BAG IVPB ONE (23:36)
[2024-01-22] MEDS: SODIUM CHLORIDE 0.9% 500 ML INFUS.BAG IV ONE (23:36)
[2024-01-22 23:43] LABS: VENOUS BASE EXCESS -3.3 mmol/L (-2-2); VENOUS O2 SATURATION 42.3 % (70-80); VENOUS PCO2 35.2 mmHg (38-52); VENOUS PH 7.393 (7.310-7.410)
[2024-01-22 23:44] LABS: BASO % 0.1 % (0-2.0); HEMATOCRIT 30.9 % (35.4-49); HEMOGLOBIN 10.2 GM/dL (11.7-16.9); LYMPH % 2.1 % (8-40); MCH 29.6 pg (25.7-33.7); MCHC 33.1 g/dl (32.0-35.9); MEAN CELL VOLUME 89.6 fl (80-96); MEAN PLT VOLUME 8.6 fl (7.5-11.1); MONO % 12.8 % (3.8-10.2); PLATELET COUNT 140 10^3/uL (134-434); RBC 3.45 M/mm3 (4.00-5.60); RDW 15.8 % (11.9-15.9); WHITE BLOOD COUNT 5.1 K/mm3 (4.0-10.0)
[2024-01-23 00:01] LABS: POTASSIUM 3.7 mmol/L (3.5-5.1)
[2024-01-23 00:04] LABS: ALBUMIN 2.8 g/dl (3.4-5.0); BLOOD UREA NITROGEN 17.6 mg/dL (7-18)
[2024-01-23 00:07] LABS: CREATININE 2.2 mg/dL (0.55-1.3)
[2024-01-23 00:08] LABS: BILIRUBIN,TOTAL 1.4 mg/dL (0.2-1)
[2024-01-23 00:09] LABS: TOT PROT 7.9 g/dl (6.4-8.2)
[2024-01-23] MEDS ORDERED: morphine SULFATE 4 MG/ML VIAL ONE (00:29)
[2024-01-23] MEDS: morphine SULFATE 4 MG/ML VIAL IVPUSH ONE (00:33)
[2024-01-23 00:35] LABS: INR 1.34 (0.83-1.09); PROTHROMBIN TIME (PATIENT) 15.3 SEC (9.7-13.0)
[2024-01-23 00:38] LABS: ACTIVATED PTT 27.9 SECONDS (25.2-36.5)
[2024-01-23 00:48] LABS: EPI CELLS >36 /uL (0-25.1); HYALINE CASTS 9 /uL (0-3.1); PH,URINE 5.5 (5.0-8.0); URINE APPEARANCE TURBID; URINE BACTERIA >9,000 /uL (0-1359); URINE BILIRUBIN 1+ (NEGATIVE); URINE COLOR DK YELLOW; URINE GLUCOSE (UA) NEGATIVE (NEGATIVE); URINE KETONE 1+ (NEGATIVE); URINE LEUK ESTERASE 2+ (NEGATIVE); URINE NITRITE POSITIVE (NEGATIVE); URINE PROTEIN 3+ (NEGATIVE); URINE WBC 7304 /uL (0-25.8)
[2024-01-23 02:48] LABS: LACTIC ACID 4.4 mmol/L (0.4-2.0)
[2024-01-23] MEDS: SODIUM CHLORIDE 0.9% 500 ML INFUS.BAG IV ONE (03:32)
[2024-01-23 04:56] LABS: LACTIC ACID 2.3 mmol/L (0.4-2.0)
[2024-01-23] MEDS ORDERED: MORPHINE SULFATE 2 MG/ML SYRINGE ONE ×3 (08:18→20:43)
[2024-01-23] MEDS: morphine CARPU-JECT 2 MG/1 ML DISP.SYRIN IVPUSH ONE (08:35)
[2024-01-23] MEDS ORDERED: ACETAMINOPHEN 325 MG TABLET (FP) PO PRN (08:46)
[2024-01-23 09:05] LABS: URINE CRYSTALS NONE SEEN /hpf; URINE RBC 79 /uL (0-23.9); YEAST NONE SEEN (NEGATIVE)
[2024-01-23] MEDS: morphine CARPU-JECT 4 MG/1 ML DISP.SYRIN IVPUSH ONE (09:33)
[2024-01-23 09:57] LABS: MCHC 32.1 g/dl (32.0-35.9); MEAN CELL VOLUME 90.2 fl (80-96); MEAN PLT VOLUME 8.7 fl (7.5-11.1); PLATELET COUNT 111 10^3/uL (134-434); RBC 3.11 M/mm3 (4.00-5.60); WHITE BLOOD COUNT 4.2 K/mm3 (4.0-10.0)
[2024-01-23 10:11] LABS: POTASSIUM 3.9 mmol/L (3.5-5.1)
[2024-01-23 10:13] LABS: ALBUMIN 2.4 g/dl (3.4-5.0); BLOOD UREA NITROGEN 16.7 mg/dL (7-18); CALCIUM 8.3 mg/dL (8.5-10.1)
[2024-01-23 10:17] LABS: CREATININE 1.7 mg/dL (0.55-1.3)
[2024-01-23 10:18] LABS: TOT PROT 6.8 g/dl (6.4-8.2)
[2024-01-23 10:22] LABS: BILIRUBIN,TOTAL 0.8 mg/dL (0.2-1)
[2024-01-23 10:25] LABS: MAGNESIUM 1.4 mg/dL (1.8-2.4)
[2024-01-23 10:29] LABS: PHOSPHOROUS 2.3 mg/dL (2.5-4.9)
[2024-01-23] MEDS: SODIUM CHLORIDE 1,000 ML IV SCH (11:16)
[2024-01-23 11:24] LABS: ANISOCYTOSIS 0; HELMET CELLS 0; HOWELL-JOLLY BODIES 0; MACROCYTOSIS 0; OVALOCYTE 0; ROULEAU 0; SICKELED CELLS 0; TARGET CELLS 0; TEAR DROP CELLS 0; TOXIC GRANULATION 0
[2024-01-23] MEDS ORDERED: MAGNESIUM SULFATE IN WATER 2 GM/50 ML IVPB IVPB ONE ×2 (11:27→13:30)
[2024-01-23] MEDS: MAGNESIUM SULF 50% (8.12 MEQ/2 ML-1 GM VIAL) IVPB ONE (12:00)
[2024-01-23] MEDS: POTASSIUM PHOSPHATE 30 MM in SODIUM CHLORIDE 500 ML IVPB ONE (13:03)
[2024-01-23] MEDS ORDERED: HEPARIN NA (PORCINE) 5,000 UNITS/ML 1ML VIAL ONE ×2 (13:45→22:07)
[2024-01-23] MEDS: HEPARIN NA (PORCINE) 5,000 UNITS/ML 1ML VIAL SQ SCH (13:52)
[2024-01-23] MEDS ORDERED: morphine SULFATE 4 MG/ML VIAL IVPUSH PRN (14:27)
[2024-01-23] MEDS: MORPHINE SULFATE 2 MG/ML SYRINGE IVPUSH PRN (14:46)
[2024-01-23] MEDS ORDERED: AZTREONAM 1 GM VIAL (RESTRICTED TO ID) ONE ×2 (14:48→17:21)
[2024-01-23] MEDS: AZTREONAM 1 GM in DEXTROSE 5%-WATER - 50 ML IVPB SCH (14:55)
[2024-01-24 07:39] LABS: HEMATOCRIT 26.3 % (35.4-49); HEMOGLOBIN 8.5 GM/dL (11.7-16.9); MCH 28.8 pg (25.7-33.7); MCHC 32.2 g/dl (32.0-35.9); MEAN CELL VOLUME 89.4 fl (80-96); MEAN PLT VOLUME 8.8 fl (7.5-11.1); PLATELET COUNT 121 10^3/uL (134-434); RBC 2.94 M/mm3 (4.00-5.60); RDW 16.3 % (11.9-15.9); WHITE BLOOD COUNT 4.4 K/mm3 (4.0-10.0)
[2024-01-24 07:51] LABS: POTASSIUM 3.6 mmol/L (3.5-5.1)
[2024-01-24 07:53] LABS: ALBUMIN 2.2 g/dl (3.4-5.0)
[2024-01-24 07:54] LABS: CALCIUM 7.9 mg/dL (8.5-10.1)
[2024-01-24 07:55] LABS: BLOOD UREA NITROGEN 11.7 mg/dL (7-18); MAGNESIUM 1.7 mg/dL (1.8-2.4)
[2024-01-24 07:58] LABS: CREATININE 1.4 mg/dL (0.55-1.3)
[2024-01-24 07:59] LABS: BILIRUBIN,TOTAL 0.5 mg/dL (0.2-1)
[2024-01-24 08:00] LABS: TOT PROT 6.4 g/dl (6.4-8.2)
[2024-01-24 10:08] LABS: ANISOCYTOSIS 0; HELMET CELLS 0; HOWELL-JOLLY BODIES 0; MACROCYTOSIS 0; OVALOCYTE 0; ROULEAU 0; SICKELED CELLS 0; TARGET CELLS 0; TEAR DROP CELLS 0; TOXIC GRANULATION 0
[2024-01-24] MEDS: SODIUM CHLORIDE 1,000 ML IV SCH (15:17)
[2024-01-25 07:09] LABS: POTASSIUM 3.5 mmol/L (3.5-5.1)
[2024-01-25 07:14] LABS: CALCIUM 7.9 mg/dL (8.5-10.1)
[2024-01-25 07:15] LABS: ALBUMIN 2.1 g/dl (3.4-5.0); BLOOD UREA NITROGEN 12.7 mg/dL (7-18)
[2024-01-25 07:18] LABS: BILIRUBIN,TOTAL 0.4 mg/dL (0.2-1); CREATININE 1.3 mg/dL (0.55-1.3)
[2024-01-25] MEDS: PANTOPRAZOLE 40 MG TABLET PO SCH (09:39)
[2024-01-25 14:40] VITALS: BMI 24.9
[2024-01-25] MEDS ORDERED: SUCRALFATE 1 GM/10 ML UNIT DOSE CUPS NR SCH (22:00)
[2024-01-25] MEDS: SUCRALFATE 1 GM/10 ML UNIT DOSE CUPS NR SCH (23:37)
[2024-01-26 07:45] LABS: BASO % 0.3 % (0-2.0); EOS % 0.7 % (0-4.5); HEMATOCRIT 27.5 % (35.4-49); HEMOGLOBIN 8.8 GM/dL (11.7-16.9); LYMPH % 21.7 % (8-40); MCH 29.1 pg (25.7-33.7); MCHC 32.1 g/dl (32.0-35.9); MEAN CELL VOLUME 90.6 fl (80-96); MEAN PLT VOLUME 8.8 fl (7.5-11.1); MONO % 16.5 % (3.8-10.2); NEUT % 60.8 % (42.8-82.8); PLATELET COUNT 125 10^3/uL (134-434); RBC 3.04 M/mm3 (4.00-5.60); RDW 16.3 % (11.9-15.9); WHITE BLOOD COUNT 3.5 K/mm3 (4.0-10.0)
[2024-01-26 08:13] LABS: POTASSIUM 3.6 mmol/L (3.5-5.1)
[2024-01-26 08:15] LABS: ALBUMIN 2.2 g/dl (3.4-5.0); BLOOD UREA NITROGEN 11.3 mg/dL (7-18); MAGNESIUM 1.6 mg/dL (1.8-2.4)
[2024-01-26 08:18] LABS: CREATININE 1.3 mg/dL (0.55-1.3); PHOSPHOROUS 1.6 mg/dL (2.5-4.9)
[2024-01-26 08:20] LABS: BILIRUBIN,TOTAL 0.4 mg/dL (0.2-1); TOT PROT 6.3 g/dl (6.4-8.2)
[2024-01-26] MEDS: FINASTERIDE 5 MG TABLET (FP) PO SCH (10:50)
[2024-01-26] MEDS: TAMSULOSIN HCL 0.4 MG CAP PO SCH (10:51)
[2024-01-26] MEDS: MAGNESIUM 2GM/50ML STERILE WATER IVPB IVPB ONE (13:40)
[2024-01-26] MEDS: NAPH,MB-DB/K PH,MBDB POWDER PACKET PO ONE (13:40)
[2024-01-26] MEDS: MAGNESIUM OXIDE 400 MG TABLET (FP) PO ONE (15:59)
[2024-01-27] MEDS: ACETAMINOPHEN 1000 MG/100 ML BAG IVPB ONE (04:58)
[2024-01-27] MEDS ORDERED: ACETAMINOPHEN 500 MG TABLET (FP) PO PRN ×2 (06:37→06:43)
[2024-01-27 07:49] LABS: CHLORIDE 112 mmol/L (98-107); POTASSIUM 3.4 mmol/L (3.5-5.1); SODIUM 141 mmol/L (136-145)
[2024-01-27 08:07] LABS: CALCIUM 7.7 mg/dL (8.5-10.1)
[2024-01-27 08:09] LABS: ALBUMIN 1.9 g/dl (3.4-5.0); ANION GAP 7 mmol/L (4-13); BLOOD UREA NITROGEN 9.4 mg/dL (7-18); CO2 22 mmol/L (21-32); GLUCOSE,RANDOM 121 mg/dL (74-106); MAGNESIUM 1.8 mg/dL (1.8-2.4)
[2024-01-27 08:10] LABS: BASO % 0.2 % (0-2.0); EOS % 0.5 % (0-4.5); HEMATOCRIT 25.8 % (35.4-49); HEMOGLOBIN 8.4 GM/dL (11.7-16.9); LYMPH % 14.7 % (8-40); MCH 29.7 pg (25.7-33.7); MCHC 32.7 g/dl (32.0-35.9); MEAN CELL VOLUME 90.7 fl (80-96); MEAN PLT VOLUME 8.8 fl (7.5-11.1); MONO % 16.8 % (3.8-10.2); NEUT % 67.8 % (42.8-82.8); PLATELET COUNT 118 10^3/uL (134-434); RBC 2.84 M/mm3 (4.00-5.60); RDW 15.7 % (11.9-15.9); WHITE BLOOD COUNT 3.7 K/mm3 (4.0-10.0)
[2024-01-27 08:11] LABS: CREATININE 1.1 mg/dL (0.55-1.3); PHOSPHOROUS 1.6 mg/dL (2.5-4.9)
[2024-01-27 08:12] LABS: SGOT/AST 70 U/L (15-37); SGPT/ALT 34 U/L (13-61)
[2024-01-27 08:14] LABS: ALK PHOS 101 U/L (45-117); BILIRUBIN,TOTAL 0.4 mg/dL (0.2-1); TOT PROT 5.7 g/dl (6.4-8.2)
[2024-01-27] MEDS: SODIUM CHLORIDE 1,000 ML IV SCH (12:02)
[2024-01-27] MEDS: NAPH,MB-DB/K PH,MBDB POWDER PACKET PO SCH (12:02)
[2024-01-27] MEDS: morphine SO4 SUSTAINED ACTING 15 MG TABLET.SA PO SCH (17:16)
[2024-01-27] MEDS: morphine SULFATE IMMEDIATE RELEASE 30 MG TAB PO PRN (20:29)
[2024-01-28 08:37] LABS: POTASSIUM 3.5 mmol/L (3.5-5.1)
[2024-01-28 08:45] LABS: ALBUMIN 1.9 g/dl (3.4-5.0); BLOOD UREA NITROGEN 9.2 mg/dL (7-18); CALCIUM 7.7 mg/dL (8.5-10.1); CREATININE 1.1 mg/dL (0.55-1.3); MAGNESIUM 1.5 mg/dL (1.8-2.4)
[2024-01-28 08:47] LABS: BILIRUBIN,TOTAL 0.3 mg/dL (0.2-1); TOT PROT 5.7 g/dl (6.4-8.2)
[2024-01-28 09:11] LABS: BASO % 0.3 % (0-2.0); HEMATOCRIT 24.7 % (35.4-49); HEMOGLOBIN 8.2 GM/dL (11.7-16.9); LYMPH % 23.2 % (8-40); MCH 29.2 pg (25.7-33.7); MEAN CELL VOLUME 88.7 fl (80-96); MONO % 16.8 % (3.8-10.2); NEUT % 58.7 % (42.8-82.8); PLATELET COUNT 116 10^3/uL (134-434); RBC 2.79 M/mm3 (4.00-5.60); RDW 16.1 % (11.9-15.9); WHITE BLOOD COUNT 2.7 K/mm3 (4.0-10.0)
[2024-01-28] MEDS: HEPARIN NA (PORCINE) 5,000 UNITS/ML 1ML VIAL SQ SCH (14:14)
[2024-01-28] MEDS: MAGNESIUM SULF 50% (8.12 MEQ/2 ML-1 GM VIAL) IVPB ONE (16:27)
[2024-01-28] MEDS: MAGNESIUM 2GM/50ML STERILE WATER IVPB IVPB ONE (17:25)
[2024-01-28] MEDS: AZTREONAM 1 GM in DEXTROSE 5%-WATER - 50 ML IVPB SCH (17:29)
[2024-01-28] MEDS: POTASSIUM PHOSPHATE 30 MM in DEXTROSE 5%-WATER - 500 ML IVPB ONE (18:07)
[2024-01-28] MEDS: SUCRALFATE 1 GM/10 ML UNIT DOSE CUPS NR SCH (21:16)
[2024-01-28] MEDS: TAMSULOSIN HCL 0.4 MG CAP PO SCH (21:17)
[2024-01-29 09:15] LABS: BASO % 0.3 % (0-2.0); HEMATOCRIT 26.6 % (35.4-49); HEMOGLOBIN 8.7 GM/dL (11.7-16.9); LYMPH % 18.2 % (8-40); MCH 29.3 pg (25.7-33.7); MCHC 32.7 g/dl (32.0-35.9); MEAN CELL VOLUME 89.6 fl (80-96); MEAN PLT VOLUME 8.9 fl (7.5-11.1); MONO % 16.6 % (3.8-10.2); NEUT % 63.9 % (42.8-82.8); PLATELET COUNT 120 10^3/uL (134-434); RBC 2.97 M/mm3 (4.00-5.60); RDW 16.3 % (11.9-15.9); WHITE BLOOD COUNT 3.1 K/mm3 (4.0-10.0)
[2024-01-29 09:38] LABS: POTASSIUM 3.7 mmol/L (3.5-5.1)
[2024-01-29 09:54] LABS: ALBUMIN 2.1 g/dl (3.4-5.0); CALCIUM 7.8 mg/dL (8.5-10.1)
[2024-01-29 09:55] LABS: BLOOD UREA NITROGEN 6.9 mg/dL (7-18)
[2024-01-29 09:57] LABS: BILIRUBIN,TOTAL 0.3 mg/dL (0.2-1); CREATININE 1.1 mg/dL (0.55-1.3); PHOSPHOROUS 2.8 mg/dL (2.5-4.9)
[2024-01-29 09:59] LABS: TOT PROT 6.1 g/dl (6.4-8.2)
[2024-01-29] MEDS: FINASTERIDE 5 MG TABLET (FP) PO SCH (10:28)
[2024-01-29] MEDS: PANTOPRAZOLE 40 MG TABLET PO SCH (10:32)
[2024-01-29 10:37] VITALS: BP 107/62; PULSE 77; RESP 17; TEMP 98.2
== END 2024-01-29 12:56 | disposition short-term general hospital (02) | DRG 698 ==
LOC: JER 22:58 → JERBED 01-23 08:02 → J4W 01-24 00:03 → J6S 01-28 13:03
PROVIDERS: ADMIT Family Medicine; ATTEND Internal Medicine
DX: T83.511A Infection and inflammatory reaction due to indwelling urethral catheter, initial encounter (principal); A41.51 Sepsis due to Escherichia coli [E. coli]; E87.20 Acidosis, unspecified; N17.9 Acute kidney failure, unspecified; M62.82 Rhabdomyolysis; K61.1 Rectal abscess; E11.9 Type 2 diabetes mellitus without complications; N39.0 Urinary tract infection, site not specified; E78.5 Hyperlipidemia, unspecified; D69.6 Thrombocytopenia, unspecified; N13.9 Obstructive and reflux uropathy, unspecified; K62.7 Radiation proctitis; B96.1 Klebsiella pneumoniae [K. pneumoniae] as the cause of diseases classified elsewhere; N40.0 Benign prostatic hyperplasia without lower urinary tract symptoms; R79.89 Other specified abnormal findings of blood chemistry; Z85.038 Personal history of other malignant neoplasm of large intestine; Y84.6 Urinary catheterization as the cause of abnormal reaction of the patient, or of later complication, without mention of misadventure at the time of the procedure; Y92.89 Other specified places as the place of occurrence of the external cause
CPT/HCPCS: 0241U-QW; 36415; 71045-TC-FY; 74176-TC; 80053; 81003; 82105; 82248; 82550; 82553; 82570; 82803; 82962; 83605; 83690; 83735; 84100; 84484; 84540; 85025; 85610; 85730; 86850; 86900; 86901; 87040; 87086; 87186; 87635; 93005; 93010; 99291; J0131; J1644